=== PATIENT | female | born 1955 | race African-American/Black ===

== ENCOUNTER 2021-10-21 00:03 | Emergency (ER) | payer OTHER, SELFPAY ==
--- NOTE | ~2021-10-21 | CT_ITS ---
EXAMINATION: CTA chest PE protocol EXAM DATE: 10/21/2021 05:01 INDICATION: dyspnea, hospitalization, elevated BNP TECHNIQUE: Spiral CTA of the chest (pulmonary arteries) was performed with 100 cc Omnipaque 350 intr avenous contrast injection. Images were acquired during the pulmonary arterial phase. Coronal maxi mum intensity projection 3D-reconstructions were created by the technologist on dedicated workstation . Axial, coronal and sagittal reformatted images were reviewed. The dose-length product (DLP) for t his examination was 372.86 mGy-cm. The exposure was tailored according to patient size (auto mA exp osure control), and iterative reconstruction (ASIR) was used as additional dose reduction technique. There is no prior study for comparison. FINDINGS: Pulmonary arteries are well opacified and without intraluminal filling defects. The aorta is not yet opacified. There is cardiomegaly. Small pericardial and right pleural effusions. Trace le ft pleural effusion. Mild intralobular septal thickening, probably mild pulmonary edema. Contrast ref luxing through the right atrium to the IVC consistent with poor right heart function. Tracheobronchia l tree is patent. There is no mediastinal, hilar or axillary lymphadenopathy. There is no pneumot horax. There is mild coronary arterial calcification, arterial sclerosis. Upper abdomen is unrem arkable. There is mild thoracic spondylosis without osteoblastic or osteolytic lesions identified. IMPRESSION: 1. Findings consistent with CHF exacerbation. 2. No pulmonary emboli.. Reviewed, dictated and finalized at location A.
--- NOTE | ~2021-10-21 | XR_ITS ---
EXAMINATION: XR chest 1V portable EXAM DATE: 10/21/2021 00:28 INDICATION: Low oxygen saturation. Cough. History stroke and pneumonia. TECHNIQUE: Portable AP frontal chest x-ray was obtained. There is no prior study for comparison. FINDINGS: Moderately enlarged cardiac silhouette, combination of cardiomegaly and small pericardial e ffusion. There are small right pleural effusion. There is pulmonary vascular congestion. Probable mil d pulmonary edema. IMPRESSION: CHF exacerbation. Reviewed, dictated and finalized at location A. IMPRESSION: CHF exacerbation.
[2021-10-21 00:08] VITALS: BP 185/135; PULSE 113; PULSE 98; RESP 24; TEMP 36.3; O2SAT 100
--- NOTE | 2021-10-21 00:11 | ED.SOB ---
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 Patient states that she was diagnosed with pneumonia in July, was walking this evening, noted to have cough, shortness of breath. Personnel at the facility obtain the patient's oxygen level which was 90%. Patient was given a nebulizer treatment and EMS was called to transport the patient to our facility. Patient denies fever, chills. She denies productive cough. She denies chest pain. Denies abdominal pain, nausea or vomiting. She denies lower extremity swelling, redness. Patient denies history of COVID infection. Patient states she has been tested for [facility] and has tested negative. Chart reviewed, and pt did receive TPA at [facility]. Related Data Allergies Allergy/AdvReac Type Severity Reaction Status Date / Time No Known Allergies Allergy Unverified 09/30/11 16:53 Review of Systems Review of Systems: CONSTITUTIONAL: Denies fever, chills, or sweats. EYES: Denies visual changes, redness, or discharge. ENT: Denies rhinorrhea, congestion, sore throat, or otalgia. CARDIOVASCULAR: Denies chest pain, palpitations, or edema. RESPIRATORY: Reports cough and shortness of breath GASTROINTESTINAL: Denies abdominal pain, nausea, vomiting, or diarrhea. GENITOURINARY: Denies dysuria or hematuria. SKIN: Denies rash or itching. MUSCULOSKELETAL: Denies back pain, joint pain, or myalgia. NEUROLOGIC: Denies headache, numbness, or weakness. [facility] Social History Social History (Updated 10/21/21 @ 00:36 by Tiny Vázqeuz MD) Alcohol intake: never Substance use: never Living arrangements: [facility] Gender identity (if verbalized by the patient): Female Exam Narrative: GENERAL: Awake, alert, conversant HEAD: Normocephalic, atraumatic. Right facial droop, mild aphasia. EYES: PERRLA and EOMI. ENT: Nares clear, no rhinorrhea or epistaxis. Mucous membranes moist. NECK: Supple. CHEST: Mild tachypnea, no respiratory distress, coarse breath sounds bilaterally, no wheezing HEART: Tachycardic rate, sinus rhythm ABDOMEN:Non distended, non tender EXTREMITIES: Normal range of motion. No edema. SKIN: Warm, dry, no rash. NEURO: Right-sided residual deficits from CVA at baseline. Alert and oriented x3 Course Vital Signs Vital signs: Vital Signs Temperature 36.3 C L 10/21/21 00:08 Pulse Rate 98 10/21/21 00:08 Respiratory Rate 24 H 10/21/21 00:08 Blood Pressure 185/135 H 10/21/21 00:08 Pulse Oximetry 100 10/21/21 00:08 Temperature 36.3 C L 10/21/21 00:08 Pulse Rate 92 10/21/21 06:19 Respiratory Rate 14 10/21/21 06:19 Blood Pressure 178/122 H 10/21/21 06:19 Pulse Oximetry 97 10/21/21 06:19 MDM - SOB/Dyspnea MDM Narrative Medical decision making narrative: Patient presenting for evaluation of shortness of breath. At the time of assessment, ABCs are intact and vital signs are stable. Patient has coarse breath sounds bilaterally, no significant respiratory distress. Laboratory results show no lactic acidosis. Mild leukopenia. No significant anemia. Mild thrombocytopenia. No severe electrolyte derangement. No acute kidney injury. Chest x-ray with concern for mild pulmonary edema, did obtain a CTA to ensure no PE and it is consistent with CHF exacerbation. Patient was given a dose of Lasix in the ER. Her troponin is not elevated. She has no signs of sever
[2021-10-21] MEDS: SODIUM CHLORIDE 0.9% IV 500 ML 999 ML IV CONT (00:41)
[2021-10-21 01:00] VITALS: BP 170/112; PULSE 90; RESP 19; O2SAT 96
[2021-10-21 01:18] LABS: Lactic Acid Reflex 1.1 mmol/L (0.7-2.1)
[2021-10-21 01:20] LABS: Alanine Aminotransferase 65 U/L (4-35); Albumin Level 3.7 g/dL (3.5-5.1); Alkaline Phosphatase 76 U/L (38-126); Anion Gap 7 mmol/L (8-16); Aspartate Amino Transferase 70 U/L (14-36); Bilirubin,Total 0.8 mg/dL (0.2-1.3); Blood Urea Nitrogen 18 mg/dL (7-17); Calcium 8.9 mg/dL (8.4-10.2); Carbon Dioxide 23 mmol/L (22-30); Chloride 109 mmol/L (98-107); Estimated CRCL calculation 65 ml/min; Estimated Glomerular Filt Rate > 60; Glucose 95 mg/dL (65-110); Potassium 3.9 mmol/L (3.4-5.0); Sodium 139 mmol/L (137-145)
[2021-10-21 01:21] LABS: INR 1.4; Prothrombin Time 16.7 Seconds (11.1-14.7)
[2021-10-21 01:22] LABS: Partial Thromboplastin Time 32.8 SECONDS (22.3-36.8)
[2021-10-21 01:31] LABS: NT Pro B Type Natriuretic Pept 6470 pg/mL (5-100); Troponin I < 0.012 ng/mL (0.000-0.034)
[2021-10-21 01:46] LABS: Appearance Urine Clear (Clear); Bilirubin Urine Negative (Negative); Blood Urine Negative (Negative); Color Urine Yellow (Yellow); Glucose Urine UA Negative (Negative); Ketones Urine Negative (Negative); Leukocyte Esterase Ur Negative LEU/UL (Negative); Nitrate Urine Negative (Negative); Protein Urine 2+ mg/dL (Negative); Urobilinogen Urine 0.2 mg/dL (<2.0); pH Urine 5.5 (5.0-9.0)
[2021-10-21 01:54] LABS: Add Urine Microscopic? YES; Bacteria Urine Trace /hpf; Mucus Urine Rare /lpf; RBC Urine 0-2 /hpf (0-2); Squamous Epithelial Cell Urine Rare /hpf (Few)
--- NOTE | 2021-10-21 01:54 | ECG_ITS ---
Measurements Intervals [place] Rate: 99 P: MA: 0 QRS: -40 QRSD: 101 T: 116 QT: 377 QTc: 485 Interpretive Statements ATRIAL FIBRILLATION LEFT AXIS DEVIATION [QRS AXIS < -30] PATTERN CONSISTENT WITH PULMONARY DISEASE MODERATE T-WAVE ABNORMALITY, CONSIDER LATERAL ISCHEMIA [-0.1+ mV T-WAVE IN I/aVL/V5/V6] ABNORMAL ECG NO PREVIOUS ECG AVAILABLE FOR COMPARISON Electronically Signed On 10-21-2021 16:46:31 CDT by Felix Jaime M.D.
[2021-10-21 02:36] VITALS: BP 167/116; PULSE 86; RESP 22; O2SAT 100
[2021-10-21 02:51] LABS: Basophils Absolute Auto 0.1 K/mm3 (0.0-0.1); Basophils Percent Auto 1.3 % (0.2-1.2); Hematocrit 41.6 % (37.0-47.0); Hemoglobin 13.9 g/dL (12.0-15.0); Immature Platelet Fraction Pct 5.8 % (0.9-11.2); Lymphocytes Percent Auto 36.3 % (18.3-44.2); Mean Corpuscular HGB Conc 33.4 g/dl (32-36); Mean Corpuscular Hemoglobin 27.5 pg (26-34); Mean Corpuscular Volume 82.4 fl (80-100); Mean Platelet Volume 12.2 fl (7.4-10.4); Monocytes Absolute Auto 0.6 K/mm3 (0.1-0.6); Neutrophils Absolute Auto 1.8 K/mm3 (1.3-6.7); Neutrophils Percent Auto 46.4 % (45.5-73.1); Platelet Count Result 98 k/mm3 (150-375); Red Blood Count 5.05 M/mm3 (4.2-5.4); Red Cell Distribution Width 15.2 % (11.5-14.5); White Blood Count 3.9 K/mm3 (4.5-10.0)
[2021-10-21 04:14] VITALS: BP 173/119; PULSE 89; RESP 20; O2SAT 96
[2021-10-21] MEDS: FUROSEMIDE INJ 40 MG/4 ML VIAL 20 MG IV PUSH (06:13)
[2021-10-21 06:19] VITALS: BP 178/122; PULSE 92; RESP 14; O2SAT 97
--- NOTE | 2021-10-21 08:05 | PC.NURSE ---
called [facility] to set up transport for pt back to facility. no answer. left voicemail.
[2021-10-21 08:24] VITALS: BP 167/102; PULSE 89; RESP 17; O2SAT 98
== END 2021-10-21 08:27 ==
PROVIDERS: Emergency Provider Emergency Medicine
DX: I11.0 Hypertensive heart disease with heart failure (principal); I50.9 Heart failure, unspecified; J90 Pleural effusion, not elsewhere classified; E78.5 Hyperlipidemia, unspecified; I48.91 Unspecified atrial fibrillation; Z87.01 Personal history of pneumonia (recurrent); R94.31 Abnormal electrocardiogram [ECG] [EKG]
CPT/HCPCS: 36415; 71045; 71275; 80053; 81001; 83605; 83880; 84484; 85025; 85055; 85610; 85730; 87040; 93005; 96361; 96374; 99285; J1940; J7040; Q9967

== ENCOUNTER 2021-10-25 22:36 | Observation (INO) | payer OTHER, SELFPAY ==
--- NOTE | ~2021-10-25 | XR_ITS ---
EXAMINATION: XR chest 1V portable DATE: 10/26/2021 00:03 INDICATION: Dyspnea. TECHNIQUE: A single frontal view of the chest was obtained. COMPARISON: Chest single view 10/21/2021, chest CT 10/21/2021 FINDINGS: There is a diffuse interstitial pattern in the lungs, consistent with pulmonary edema. Ther e are small pleural effusions. No pneumothorax. There is enlargement of the cardiac silhouette. IMPRESSION: 1. Mild pulmonary edema. 2. Small pleural effusions. 3. Enlargement of the cardiac silhouette, likely a combination of cardiomegaly and pericardial effusi on as seen on the recent CT. Reviewed, dictated and finalized at location A. IMPRESSION: 1. Mild pulmonary edema. 2. Small pleural effusions. 3. Enlargement of the cardiac silhouette, likely a combination of cardiomegaly and pericardial effusion as seen on the recent CT.
[2021-10-25 22:42] VITALS: BP 220/161; PULSE 128; RESP 24; TEMP 35.9; O2SAT 97
[2021-10-25 22:45] VITALS: O2SAT 97
--- NOTE | 2021-10-25 23:13 | ECG_ITS ---
Measurements Intervals [place] Rate: 94 P: ID: 0 QRS: -36 QRSD: 110 T: 121 QT: 379 QTc: 474 Interpretive Statements ATRIAL FIBRILLATION LEFT AXIS DEVIATION [QRS AXIS < -30] PATTERN CONSISTENT WITH PULMONARY DISEASE ST DEVIATION AND MODERATE T-WAVE ABNORMALITY, CONSIDER LATERAL ISCHEMIA [-0.1+ mV T- WAVE IN I/aVL/V5/V6] COMPARED TO ECG 10/21/2021 00:09:58 NO SIGNIFICANT CHANGES Electronically Signed On 10-27-2021 13:21:24 CDT by Billie Franco M.D.
[2021-10-25 23:16] VITALS: PULSE 98; RESP 21; O2SAT 100
[2021-10-25] MEDS: ALBUTEROL SULFATE NEB 2.5 MG/0.5 ML INH 10 MG INHALATION (23:18)
[2021-10-25] MEDS: IPRATROPIUM BR 0.02% INH SOLN 0.5 MG/2.5 ML VIAL 2 MG INHALATION (23:18)
[2021-10-25 23:23] VITALS: PULSE 92; RESP 23
[2021-10-25 23:47] LABS: Basophils Absolute Auto 0.1 K/mm3 (0.0-0.1); Basophils Percent Auto 1.5 % (0.2-1.2); Eosinophils Absolute Auto 0.1 K/mm3 (0-0.3); Eosinophils Percent Auto 1.8 % (0-4.4); Hematocrit 50.1 % (37.0-47.0); Hemoglobin 16.3 g/dL (12.0-15.0); Immature Granulocyte Absolute 0.01 K/mm3 (0.00-0.031); Immature Granulocyte Percent A 0.2 % (0-0.5); Immature Platelet Fraction Pct 10.5 % (0.9-11.2); Lymphocytes Absolute Auto 3.37 K/mm3 (0.9-3.2); Lymphocytes Percent Auto 62.1 % (18.3-44.2); Mean Corpuscular HGB Conc 32.5 g/dl (32-36); Mean Corpuscular Hemoglobin 27.6 pg (26-34); Mean Corpuscular Volume 84.8 fl (80-100); Monocytes Absolute Auto 0.5 K/mm3 (0.1-0.6); Monocytes Percent Auto 8.3 % (2.6-8.5); Neutrophils Absolute Auto 1.4 K/mm3 (1.3-6.7); Neutrophils Percent Auto 26.1 % (45.5-73.1); Platelet Count Result 101 k/mm3 (150-375); Red Blood Count 5.91 M/mm3 (4.2-5.4); Red Cell Distribution Width 16.3 % (11.5-14.5); White Blood Count 5.4 K/mm3 (4.5-10.0)
[2021-10-25 23:56] LABS: INR 1.6; Partial Thromboplastin Time 31.9 SECONDS (22.3-36.8); Prothrombin Time 18.3 Seconds (11.1-14.7)
[2021-10-26] VITALS (24 sets, daily range): BP systolic 108–168; BP diastolic 72–124; PULSE 79–111; RESP 14–21; TEMP 36.1–36.4; O2SAT 93–100; BMI 25.6
--- NOTE | 2021-10-26 | ECHO_ITS ---
Patient Info Name: Gila Lui Age: 66 years : 1955 Gender: Female Ht: 65 in Wt: 151 lbs BSA: 1.78 m2 HR: 95 bpm BP: 139 / 95 mmHg Heart Rhythm: Sinus Rhythm Exam Date: 10/26/2021 3:00 PM Exam Location: [facility] Patient Status: Outpatient Admit Date: 10/26/2021 Staff Ordering Physician: Natacha Mitchell MD Budget Director: Elio Neves, DEBORA, RT Attending Provider: Natacha Mitchell MD Referring Physician: Paula HERNANDEZ; Exam Type: CA echo doppler color flow Study Info Indications I50.9 - Heart failure, unspecified Complete two-dimensional, color flow and Doppler transthoracic echocardiogram is performed. Strain analysis performed. Summary 1. Complete two-dimensional, color flow and Doppler transthoracic echocardiogram is performed. 2. The left ventricle has severe concentric hypertrophy, particularly the mid and distal ventricle, with a small cavity size. This is consistent with a hypertrophic cardiomyopathy. Less likely, noncompaction syndrome or amyloid. There is overall normal systolic function with an ejection fraction of 57% and no segmental wall motion abnormalities. However, the global longitudinal strain is-6%, severely low, suggesting a degree of systolic dysfunction. There is grade 1 diastolic dysfunction. 3. Doppler Echo does not suggest any intraventricular gradient that would be consistent with hypertrophic obstructive cardiomyopathy. 4. Left atrial chamber dimension is moderately enlarged. 5. Right atrial chamber dimension is moderately enlarged. 6. There is mild tricuspid valve regurgitation. 7. Mild pulmonary hypertension, estimated pulmonary arterial systolic pressure is 35 mmHg. 8. There is small posterior pericardial effusion, 0.4-0.7 cm thick. No tamponade. 9. Dilated inferior vena cava with <50% collapse upon inspiration consistent with elevated right atrial pressure, 20 mmHg. 10. Normal sinus rhythm. Left Ventricle Left ventricular chamber dimension is decreased. Left ventricular systolic function is normal, estimated at Empty. There is severely increased left ventricular wall thickness. Left ventricular septal wall motion is normal. The left ventricular diastolic function is grade I diastolic dysfunction. Global longitudinal strain is severely elevated at -6 %. Right Ventricle Right ventricular chamber dimension is normal. Right ventricular systolic function is normal. Left Atria Left atrial chamber dimension is moderately enlarged. Right Atria Right atrial chamber dimension is moderately enlarged. Aortic Valve The aortic valve is trileaflet. There is mild aortic valve sclerosis. There is no aortic valve stenosis. There is no aortic valve regurgitation. Pulmonic Valve The pulmonic valve is normal. There is no pulmonic valve stenosis. There is no pulmonic regurgitation. Mitral Valve The mitral valve has normal leaflets. There is no mitral valve stenosis. There is trace mitral valve regurgitation. Tricuspid Valve The tricuspid valve leaflets are normal. There is no significant tricuspid valve stenosis. There is mild tricuspid valve regurgitation. Mild pulmonary hypertension, estimated pulmonary arterial systolic pressure is 35 mmHg. Pericardium/Pleural The pericardium appears normal. There is small posterior pericardial effusion, 0.4-0.7 cm thick. No tamponade. Inferior Vena Cava Dilated inferior vena cava with <50% collapse upon inspiration consistent with elevated right atrial pressur
[2021-10-26 00:03] LABS: Alveolar/Arterial O2 Gradient 453.5 mmHg; Base Excess ABG 0.4 mEq/l (+/-2.0); Fractional Inspired Oxygen 100 %; HCO3 ABG 25.8 mEq/l (22.0-26.0); Oxygen Content ABG 21.4 %vol (16.0-22.0); Oxygen Saturation ABG 99.4 % (95.0-100.0); Oxyhemoglobin 98.1 % THb (90.0-100.0); PCO2 ABG 44.3 mmHg (35.0-45.0); PO2 ABG 215.2 mmHg (80.0-100.0); PO2 FiO2 Ratio Arterial Blood 2.15 %; Total Hemoglobin 15.2 g/dL (12.0-18.0); pH ABG 7.383 (7.350-7.450)
[2021-10-26 00:04] LABS: Device NON-INVASIVE VENT; Modified Allen's Test Pass; Non-Invasive Expiratory Pressure 5 CMH2O; Non-Invasive Inspiratory Pressure 12 CMH2O; Non-Invasive Vent Rate 12 /MIN; Site Drawn RIGHT RADIAL
[2021-10-26 00:07] LABS: NT Pro B Type Natriuretic Pept 8080 pg/mL (5-100)
[2021-10-26 00:10] LABS: Alanine Aminotransferase 67 U/L (4-35); Albumin Level 4.5 g/dL (3.5-5.1); Alkaline Phosphatase 101 U/L (38-126); Anion Gap 8 mmol/L (8-16); Aspartate Amino Transferase 92 U/L (14-36); Bilirubin,Total 1.6 mg/dL (0.2-1.3); Blood Urea Nitrogen 18 mg/dL (7-17); Calcium 8.9 mg/dL (8.4-10.2); Carbon Dioxide 25 mmol/L (22-30); Chloride 107 mmol/L (98-107); Estimated Glomerular Filt Rate > 60; Glucose 121 mg/dL (65-110); Magnesium 1.9 mg/dL (1.6-2.3); Potassium 5.1 mmol/L (3.4-5.0); Sodium 140 mmol/L (137-145)
--- NOTE | 2021-10-26 00:21 | PM.IMHP ---
H&P: HPI History of Present Illness Date/Time: 10/26/21 00:21 Chief Complaint: Shortness of breath Narrative: This is a 66-year-old female past medical history significant for congestive heart failure, hypertension, on chronic anticoagulation. [facility] was brought to the emergency room due to acute onset shortness of breath. Patient require BiPAP upon arrival to emergency room. Most of the history has been obtained upon reviewing medical records and speaking to emergency room doctor. Preliminary workup was significant for chest x-ray with right-sided moderate size pleural effusion, brain natriuretic peptide of 8000. At the time of my visit patient was on BiPAP although awake and alert unable to give much history due to the use BiPAP. Decision has been made to admit the patient for further evaluation, management and treatment. Review of Systems Review of Systems: ROS unobtainable: Yes unobtainable due to medical condition (Respiratory failure on BiPAP) [facility], [facility] Social History Social History (Updated 10/21/21 @ 00:36 by Tiny Vázquez MD) Smoking status: Former smoker Alcohol intake: former Substance use: never Gender identity (if verbalized by the patient): Female Spiritual care concerns: No Meds Home Medications and Allergies Home Medications Medication Instructions Recorded Confirmed Type apixaban [Eliquis] 5 mg PO BID 10/26/21 10/26/21 History atorvastatin 80 mg PO HS 10/26/21 10/26/21 History carvedilol 25 mg PO BID 10/26/21 10/26/21 History fluticasone propionate 1 spray INTRANASAL DAILY 10/26/21 10/26/21 History latanoprost 1 drp EACH EYE 10/26/21 10/26/21 History loratadine 10 mg PO DAILY 10/26/21 10/26/21 History losartan 50 mg PO DAILY 10/26/21 10/26/21 History mirtazapine 15 mg PO DAILY 10/26/21 10/26/21 History Allergies Allergy/AdvReac Type Severity Reaction Status Date / Time No Known Allergies Allergy Unverified 09/30/11 16:53 Vital Signs Vital Signs - 24 hr 10/25/21 22:42 10/25/21 22:45 10/25/21 23:16 Temperature 96.7 F L Pulse Rate 128 H 98 Respiratory Rate 24 H 21 H Blood Pressure 220/161 H Pulse Oximetry 97 97 100 10/25/21 23:23 Temperature Pulse Rate 92 Respiratory Rate 23 H Blood Pressure Pulse Oximetry Exam Narrative: Patient is laying in a stretcher BiPAP on Const: General: cooperative, comfortable, no acute distress, well developed, alert, awake and ill appearing acutely Nutritional Appearance: thin Orientation/consciousness: patient oriented x3 HENMT: Head: normal to inspection, normocephalic and atraumatic Ears: hearing grossly normal bilaterally General nose exam: Normal external nose present Face and sinus: normal facial exam Eyes: General: appearance normal, both eyes and all related structures Alignment and Position: alignment normal Sclera: sclerae normal Pupils: Equal, round and reactive pupils present EOM: EOMs intact bilaterally Neck: Neck: normal visual inspection, full ROM, no lymphadenopathy, supple and no JVD Thyroid: thyroid normal Lymphatic: no lymphadenopathy noted Resp: Effort & Inspection: normal respiratory effort and other (On BiPAP) Auscultation: clear to auscultation bilaterally, crackles, no rales, no rhonchi, wheezes and diminished lung sounds Cardio: Jugular venous distension: no JVD Rate: regular rate Rhythm: regular rhythm Heart sounds: S1 normal heart sound present and S2 normal heart sound present GI: Inspection: normal to inspection GI Palp: Yes Soft to palpation, No Tenderness to palpation present (GI), No Guarding due to palpation present (GI) and Yes No hepatosplenomegaly present : General: Yes deferred Skin: Rashes: no rashes Wounds: no wounds Neuro: General: patient oriented x3 and CN's II-XI intact bilaterally Cranial nerves: Yes CN's II-XII intact bilaterally and Yes Equal, round and reactive pupils present Cognition (Neuro): normal cognition Speech: marcia
--- NOTE | 2021-10-26 00:32 | ED.SOB ---
HPI - SOB/Dyspnea General Chief Complaint: Shortness of Breath/Dyspnea Stated Complaint: SOB Time Seen by Provider: 10/25/21 22:41 Source: patient and EMS Mode of arrival: EMS Limitations: clinical condition History of Present Illness HPI Narrative: Pt went to desk complaining of SOB, Pt denies fever or CP or cough. Pt in distress unable to speak more than one or two words MD elicited complaint: shortness of breath Pertinent past history: congestive heart failure Timing: constant Severity: severe Exacerbating factors: lying flat Relieving factors: nothing Known history of: congestive heart failure Associated symptoms: denies other symptoms Treatment prior to arrival: oxygen Related Data Home Medications Medication Instructions Recorded Confirmed apixaban [Eliquis] mg 10/26/21 atorvastatin 10/26/21 carvedilol 10/26/21 latanoprost drp 10/26/21 losartan 10/26/21 mirtazapine mg 10/26/21 Allergies Allergy/AdvReac Type Severity Reaction Status Date / Time No Known Allergies Allergy Unverified 09/30/11 16:53 Review of Systems Review of Systems: All systems reviewed & are unremarkable except as noted in HPI and below [facility] Social History Social History (Updated 10/21/21 @ 00:36 by Tiny Vázquez MD) Alcohol intake: never Substance use: never Gender identity (if verbalized by the patient): Female Exam Const: Other: in respiratory distress HENMT: Head: normal to inspection Eyes: Pupils: Equal, round and reactive pupils present Neck: Neck: normal visual inspection Chest: Chest palpation & inspection: normal inspection of the chest Resp: Effort & Inspection: labored, retractions and uses accessory muscles Auscultation: wheezes Cardio: Rate: tachycardic GI: GI Palp: Yes Soft to palpation Auscultation: normal bowel sounds Skin: General skin exam: normal color Neuro: General: patient oriented x3, moves all extremities, no meningeal signs and no focal motor deficits Extrem: General: normal to inspection and no clubbing, cyanosis or edema Psych: Mental Status: mental status grossly normal Affect: normal affect Thought content: Yes Normal thought content present Course Course Emergency Course: Pt much improved after bipap and neb, calm sitting back on cart Vital Signs Vital signs: Vital Signs Temperature 96.7 F L 10/25/21 22:42 Pulse Rate 128 H 10/25/21 22:42 Respiratory Rate 24 H 10/25/21 22:42 Blood Pressure 220/161 H 10/25/21 22:42 Pulse Oximetry 97 10/25/21 22:42 Temperature 96.7 F L 10/25/21 22:42 Pulse Rate 90 10/26/21 01:47 Respiratory Rate 17 10/26/21 01:47 Blood Pressure 167/119 H 10/26/21 01:47 Pulse Oximetry 99 10/26/21 01:47 MDM - SOB/Dyspnea Lab Data Result diagrams: 10/25/21 23:37 10/25/21 23:37 Labs: Lab Results 10/25/21 10/25/21 10/25/21 Range/Units 23:37 23:37 23:37 WBC 5.4 (4.5-10.0) K/mm3 RBC 5.91 H (4.2-5.4) M/mm3 Hgb 16.3 H (12.0-15.0) g/dL Hct 50.1 H (37.0-47.0) % MCV 84.8 (80-100) fl MCH 27.6 (26-34) pg MCHC 32.5 (32-36) g/dl RDW 16.3 H (11.5-14.5) % Plt Count 101 L (150-375) k/mm3 MPV TNP Immature Gran % (Auto) 0.2 (0-0.5) % Neut % (Auto) 26.1 L (45.5-73.1) % Lymph % (Auto) 62.1 H (18.3-44.2) % Kinney % (Auto) 8.3 (2.6-8.5) % Eos % (Auto) 1.8 (0-4.4) % Baso % (Auto) 1.5 H (0.2-1.2) % Lymph # (Auto) 3.37 H (0.9-3.2) K/mm3 Kinney # (Auto) 0.5 (0.1-0.6) K/mm3 Eos # (Auto) 0.1 (0-0.3) K/mm3 Baso # (Auto) 0.1 (0.0-0.1) K/mm3 Abs Immat Gran (auto) 0.01 (0.00-0.031) K/mm3 Absolute Neuts (auto) 1.4 (1.3-6.7) K/mm3 Absolute Nucleated RBC 0.0 (0.0-0.012) K/mm3 Nucleated RBC % 0.0 (0.0-0.2) % % Immature Plt Fraction 10.5 (0.9-11.2) % PT 18.3 H (11.1-14.7) Seconds INR 1.6 APTT 31.9 (22.3-36.8) SECONDS Expiratory Pressure CMH2O Inspiratory Pre
[2021-10-26] MEDS: methylPREDNISolone SOD SUCC 125 MG VIAL IV PUSH (01:42)
[2021-10-26] MEDS: FUROSEMIDE INJ 40 MG/4 ML VIAL IV PUSH ×2 (01:42→07:11)
--- NOTE | 2021-10-26 02:01 | PC.NURSE ---
Catheter was previously placed in the wrong spot by another tech. I placed it and got return of urine.
[2021-10-26 02:48] LABS: Troponin I 0.015 ng/mL (0.000-0.034)
[2021-10-26 02:59] LABS: Troponin I < 0.012 ng/mL (0.000-0.034)
--- NOTE | 2021-10-26 03:37 | ADMGEN ---
This patient, Gila Lui, was admitted to Intensive Care Unit-1 on 10/26/21 at 0330 . Patient/family oriented to hospital policies and general routines including ID bracelet, bed and alarms, visiting hours, pain management, procedure/s, bathroom and other care routines, personal items, smoking policy, room service/diet, and visiting hours. at Information on how to activate the Rapid Response Team has been discussed. Patient/Family are encouraged to report perceived risks to care and to ask questions if they do not understand what they are told or what they should do.
--- NOTE | 2021-10-26 04:25 | PC.NURSE ---
Hospitalist informed of POLST form that patient has signed that came with paperwork from rehab center. Dr. Mitchell states that she will review form and change code orders accordingly.
[2021-10-26] MEDS: NITROGLYCERIN OINTMENT 1 INCH DOSE TRANSDERM ×3 (06:21→18:14)
[2021-10-26 06:40] LABS: Troponin I < 0.012 ng/mL (0.000-0.034)
[2021-10-26 08:31] LABS: Hematocrit 45.6 % (37.0-47.0); Hemoglobin 15.6 g/dL (12.0-15.0); Lymphocytes Absolute Auto 0.59 K/mm3 (0.9-3.2); Lymphocytes Percent Auto 18.8 % (18.3-44.2); Mean Corpuscular HGB Conc 34.2 g/dl (32-36); Mean Corpuscular Hemoglobin 27.6 pg (26-34); Mean Corpuscular Volume 80.6 fl (80-100); Monocytes Absolute Auto 0.2 K/mm3 (0.1-0.6); Monocytes Percent Auto 5.8 % (2.6-8.5); Neutrophils Absolute Auto 2.3 K/mm3 (1.3-6.7); Neutrophils Percent Auto 74.4 % (45.5-73.1); Platelet Count Result 103 k/mm3 (150-375); Red Blood Count 5.66 M/mm3 (4.2-5.4); Red Cell Distribution Width 14.8 % (11.5-14.5); White Blood Count 3.1 K/mm3 (4.5-10.0)
[2021-10-26 08:34] LABS: Lactic Acid Reflex 1.4 mmol/L (0.7-2.1)
[2021-10-26 08:39] LABS: Alanine Aminotransferase 58 U/L (4-35); Alkaline Phosphatase 76 U/L (38-126); Anion Gap 7 mmol/L (8-16); Aspartate Amino Transferase 72 U/L (14-36); Bilirubin,Total 1.2 mg/dL (0.2-1.3); Blood Urea Nitrogen 18 mg/dL (7-17); Calcium 8.9 mg/dL (8.4-10.2); Carbon Dioxide 30 mmol/L (22-30); Chloride 102 mmol/L (98-107); Estimated CRCL calculation 62 ml/min; Estimated Glomerular Filt Rate > 60; Glucose 131 mg/dL (65-110); Magnesium 1.6 mg/dL (1.6-2.3); Sodium 139 mmol/L (137-145)
[2021-10-26] MEDS: carvediloL 25 MG TABLET PO ×2 (08:40→18:06)
[2021-10-26] MEDS: LOSARTAN POTASSIUM 50 MG TABLET PO (08:41)
[2021-10-26] MEDS: FLUTICASONE PROPIONATE 0.05% NA SPR 16 GM BTL (*BKC) 1 SPRAY NASAL (08:41)
[2021-10-26] MEDS: MIRTAZAPINE 15 MG TABLET PO (08:41)
[2021-10-26] MEDS: APIXABAN 5 MG TABLET PO ×2 (08:41→18:06)
[2021-10-26] MEDS: LORATADINE 10 MG TABLET PO (08:41)
--- NOTE | 2021-10-26 09:59 | PM.IMPN ---
Progress Note: A&P Assessment and Plan (1) Acute respiratory failure with hypoxia: Code(s): J96.01 - Acute respiratory failure with hypoxia Status: Acute Assessment and Plan: Patient presents with tachypnea, tachycardia and extremely elevated blood pressure. Patient in obvious respiratory distress and unable to speak more than 1-2 words on presentation. She was labored with retractions and accessory muscle use. BiPAP started in the ED. chest x-ray showed mild pulmonary edema, small pleural effusions and enlarged cardiac silhouette. Suspect related to CHF exacerbation which could have been brought on by the elevated blood pressure. Consider also undiagnosed sleep apnea or aspiration pneumonitis. Patient was admitted started on diuretics with good response. Clinically much improved although blood pressure remains elevated. Able to come off the BiPAP and on few Liters nasal cannula. Wean oxygen as tolerated. Continue supportive care. Speech therapy evaluation. (2) Acute exacerbation of congestive heart failure: Code(s): I50.9 - Heart failure, unspecified Status: Acute Assessment and Plan: Patient presents with acute respiratory failure. Chest x-ray as mentioned above. BNP is 8000. Troponin negative x3. CTA of the chest 10/21/21 was negative for PE in a prior ED visit. This did show evidence of possible right heart failure. Symptoms could be triggered from the markedly elevated blood pressure. Consider also that she has been off her Lasix the past month. Respiratory failure also could be related to undiagnosed sleep apnea which could explain the possible right heart dysfunction or aspiration. She has had excellent diuresis with Lasix. Will resume Lasix at low oral dose. Echocardiograms been ordered and will follow up on this result. CHF teaching. Daily weights. 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 Pt did receive TPA at [facility]. Continue atorvastatin. Patient is on Eliquis but not aspirin for unclear reasons. Speech therapy as above. Start PT and OT. (4) Aphasia: Code(s): R47.01 - Aphasia Status: Acute Assessment and Plan: Residual from her CVA. Continues supportive care (5) Hypertensive emergency: Code(s): I16.1 - Hypertensive emergency Status: Acute Assessment and Plan: BP was 220/161 on admission with respiratory failure and CHF exacerbation. Patient was treated for the respiratory failure. She was started on nitropaste. Her blood pressure did improve. This morning, blood pressure was more 168/124. She was started back on Cozaar and Coreg. Will monitor now that she is back on her regular regiment and add medication if she has persistent hypertension. (6) Hypertension: Code(s): I10 - Essential (primary) hypertension Status: Acute Assessment and Plan: Patient's blood pressure was reviewed on 10/26. As above (7) Thrombocytopenia: Code(s): D69.6 - Thrombocytopenia, unspecified Status: Acute Assessment and Plan: Patient has thrombocytopenia but unclear if acute or chronic. Platelet count is low but stable. Will check B12 folate levels. Obtain old records. Follow for now (8) Atrial fibrillation: Code(s): I48.91 - Unspecified atrial fibrillation Status: Acute Assessment and Plan: Patient with known atrial fibrillation. Unclear if paroxysmal or chronic but suspect chronic since last EKG on 10/21/2021 also showed AFib. Continue Coreg for rate control. Continue Eliquis for stroke prophylaxis. Continue on telemetry for now. Monitor heart rate. Subjective Date/time seen: 10/26/21 09:59 Interval history: 66yo female
--- NOTE | 2021-10-26 12:50 | PCSTNOTE ---
Please refer to the Bedside Swallow Evaluation in the EMR. Please note, silent aspiration cannot be ruled out at bedside.
[2021-10-26] MEDS: amLODIPine BESYLATE 5 MG TABLET PO (13:29)
[2021-10-26] MEDS: LATANOPROST 0.005% OP SOLN 2.5 ML BTL 1 DROP EACH EYE (21:25)
[2021-10-26] MEDS: ATORVASTATIN 40 MG TABLET 80 MG PO (21:25)
[2021-10-27] VITALS (18 sets, daily range): BP systolic 102–142; BP diastolic 66–104; PULSE 72–99; RESP 18–20; TEMP 36.1–36.6; O2SAT 95–100
[2021-10-27 04:16] LABS: SARS-CoV-2 RNA PCR Negative
[2021-10-27 07:14] LABS: Basophils Percent Auto 0.2 % (0.2-1.2); Hematocrit 42.2 % (37.0-47.0); Hemoglobin 13.9 g/dL (12.0-15.0); Immature Granulocyte Absolute 0.02 K/mm3 (0.00-0.031); Immature Granulocyte Percent A 0.2 % (0-0.5); Lymphocytes Absolute Auto 2.07 K/mm3 (0.9-3.2); Lymphocytes Percent Auto 24.7 % (18.3-44.2); Mean Corpuscular HGB Conc 32.9 g/dl (32-36); Mean Corpuscular Hemoglobin 26.9 pg (26-34); Mean Corpuscular Volume 81.6 fl (80-100); Mean Platelet Volume 12.4 fl (7.4-10.4); Monocytes Absolute Auto 1.1 K/mm3 (0.1-0.6); Monocytes Percent Auto 12.9 % (2.6-8.5); Neutrophils Absolute Auto 5.2 K/mm3 (1.3-6.7); Platelet Count Result 120 k/mm3 (150-375); Red Blood Count 5.17 M/mm3 (4.2-5.4); Red Cell Distribution Width 14.9 % (11.5-14.5); White Blood Count 8.4 K/mm3 (4.5-10.0)
[2021-10-27] MEDS: FLUTICASONE PROPIONATE 0.05% NA SPR 16 GM BTL (*BKC) 1 SPRAY NASAL (08:00)
[2021-10-27] MEDS: MIRTAZAPINE 15 MG TABLET PO (08:01)
[2021-10-27] MEDS: amLODIPine BESYLATE 5 MG TABLET PO (08:03)
[2021-10-27] MEDS: carvediloL 25 MG TABLET PO ×2 (08:03→20:34)
[2021-10-27] MEDS: LORATADINE 10 MG TABLET PO (08:04)
[2021-10-27] MEDS: FUROSEMIDE 20 MG TABLET PO (08:04)
[2021-10-27 09:17] LABS: Alanine Aminotransferase 49 U/L (4-35); Alkaline Phosphatase 66 U/L (38-126); Anion Gap 7 mmol/L (8-16); Aspartate Amino Transferase 63 U/L (14-36); Bilirubin,Total 1.4 mg/dL (0.2-1.3); Blood Urea Nitrogen 25 mg/dL (7-17); Calcium 8.7 mg/dL (8.4-10.2); Carbon Dioxide 30 mmol/L (22-30); Chloride 100 mmol/L (98-107); Estimated CRCL calculation 62 ml/min; Estimated Glomerular Filt Rate > 60; Glucose 100 mg/dL (65-110); Magnesium 1.9 mg/dL (1.6-2.3); Phosphorus 4.1 mg/dL (2.5-4.5); Potassium 4.9 mmol/L (3.4-5.0); Sodium 137 mmol/L (137-145)
[2021-10-27] MEDS: APIXABAN 5 MG TABLET PO ×2 (09:23→20:34)
[2021-10-27 10:15] LABS: Folic Acid 16.3 ng/mL (2.76->20)
--- NOTE | 2021-10-27 13:01 | PM.IMPN ---
Progress Note: A&P Assessment and Plan (1) Acute respiratory failure with hypoxia: Code(s): J96.01 - Acute respiratory failure with hypoxia Status: Acute Assessment and Plan: Patient presents with tachypnea, tachycardia and extremely elevated blood pressure. Patient was in obvious respiratory distress and unable to speak more than 1-2 words on presentation. She was labored with retractions and accessory muscle use. BiPAP started in the ED. CXR showed mild pulmonary edema, small pleural effusions and enlarged cardiac silhouette. Bedside swallow evaluation okay. Suspect related to CHF exacerbation which could have been brought on by the elevated blood pressure. Patient was admitted started on diuretics with good response. Able to come off the BiPAP and on supplemental O2 that was able to be weaned off. Continue supportive care. (2) Acute exacerbation of congestive heart failure: Code(s): I50.9 - Heart failure, unspecified Status: Acute Assessment and Plan: Patient presents with acute respiratory failure. CXR as mentioned above. BNP is 8000. Troponin negative x3. CTA of the chest 10/21/21 was negative for PE in a prior ED visit. This did show evidence of possible right heart failure. Symptoms could be triggered from the markedly elevated blood pressure. Consider also that she has been off her Lasix the past month. She has had excellent diuresis with Lasix. Continue oral Lasix. Echo showing EF 57% and Grade I diastolic dysfunction. ApneaLink okay. Continue to control BP. Remove Carr. 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 [facility] Continue atorvastatin. Patient is on Eliquis but not aspirin for unclear reasons. She doesn't believe that she ever was on ASA since her CVA. No hx of ICH or other bleeding problems. No old records received yet. Not on ASA at the facility Speech therapy as above. Continue PT and OT. Will hold ASA for now until it can be determined why she is not on this. (4) Aphasia: Code(s): R47.01 - Aphasia Status: Acute Assessment and Plan: Residual from her CVA. Continues supportive care (5) Hypertensive emergency: Code(s): I16.1 - Hypertensive emergency Status: Acute Assessment and Plan: BP was 220/161 on admission with respiratory failure and CHF exacerbation. Patient was treated for the respiratory failure. Nitropaste added and her blood pressure did improve. Norvasc added and BP better. Will remove NTP. Continue to adjust medications (6) Atrial fibrillation: Code(s): I48.91 - Unspecified atrial fibrillation Status: Acute Assessment and Plan: Patient with known atrial fibrillation. Unclear if paroxysmal or chronic but suspect chronic since last EKG on 10/21/2021 also showed AFib. Tele reviewed showing AFib but also with multiple episodes of NSVT. Potassium 4.9 and Mag 1.9. Continue Coreg for rate control. Continue Eliquis for stroke prophylaxis. Continue on telemetry for now. Monitor heart rate. Replace Mag. (7) Hypertension: Code(s): I10 - Essential (primary) hypertension Status: Acute Assessment and Plan: Patient's blood pressure was reviewed on 10/27 As above (8) Thrombocytopenia: Code(s): D69.6 - Thrombocytopenia, unspecified Status: Acute Assessment and Plan: Patient has thrombocytopenia but unclear if acute or chronic. B12/Folate normal. Platelet count is low but better today. Follow Additional Plan Elevated LFTs - AST peaked at 92 and ALT at 67. [place] related to above. Levels trending down. Follow Subjective Date/time seen: 10/27/21 13:01 Interval history: 66yo female with hx of left internal
[2021-10-27] MEDS: MAGNESIUM SULF 2 GM/WATER 50ML 2 GM/50 ML BAG IVPB (14:00)
[2021-10-27] MEDS: ATORVASTATIN 40 MG TABLET 80 MG PO (20:33)
[2021-10-27] MEDS: LOSARTAN POTASSIUM 50 MG TABLET PO (20:34)
[2021-10-27] MEDS: LATANOPROST 0.005% OP SOLN 2.5 ML BTL 1 DROP EACH EYE (20:34)
[2021-10-28] VITALS (10 sets, daily range): BP systolic 112–139; BP diastolic 65–94; PULSE 50–88; RESP 16–22; TEMP 36.2–36.6; O2SAT 96–98
[2021-10-28 05:21] LABS: Anion Gap 5 mmol/L (8-16); Blood Urea Nitrogen 26 mg/dL (7-17); Calcium 8.3 mg/dL (8.4-10.2); Carbon Dioxide 29 mmol/L (22-30); Chloride 106 mmol/L (98-107); Estimated CRCL calculation 62 ml/min; Estimated Glomerular Filt Rate > 60; Glucose 84 mg/dL (65-110); Magnesium 2.2 mg/dL (1.6-2.3); Potassium 3.5 mmol/L (3.4-5.0); Sodium 140 mmol/L (137-145)
[2021-10-28] MEDS: FLUTICASONE PROPIONATE 0.05% NA SPR 16 GM BTL (*BKC) 1 SPRAY NASAL (08:39)
[2021-10-28] MEDS: FUROSEMIDE 20 MG TABLET PO (08:39)
[2021-10-28] MEDS: APIXABAN 5 MG TABLET PO (08:40)
[2021-10-28] MEDS: carvediloL 25 MG TABLET PO (08:40)
[2021-10-28] MEDS: MIRTAZAPINE 15 MG TABLET PO (08:40)
[2021-10-28] MEDS: amLODIPine BESYLATE 5 MG TABLET PO (08:41)
[2021-10-28] MEDS: LORATADINE 10 MG TABLET PO (08:41)
--- NOTE | 2021-10-28 12:55 | PM.DS ---
DS: Admitting Diagnosis Discharge Date 10/28/21 Admitting Diagnosis Shortness of breath DS: Discharge Diagnosis Discharge Diagnosis (1) Acute respiratory failure with hypoxia: Code(s): J96.01 - Acute respiratory failure with hypoxia Status: Acute Assessment and Plan: Patient presents with tachypnea, tachycardia and extremely elevated blood pressure. Patient was in obvious respiratory distress and unable to speak more than 1-2 words on presentation. She was labored with retractions and accessory muscle use. BiPAP started in the ED. CXR showed mild pulmonary edema, small pleural effusions and enlarged cardiac silhouette. Bedside swallow evaluation okay. Suspect related to CHF exacerbation which could have been brought on by the elevated blood pressure and/or being off her diuretics. Patient was admitted started on diuretics with good response. Able to come off the BiPAP and on to supplemental O2 that was able to be weaned off. Resolved. (2) Acute exacerbation of congestive heart failure: Code(s): I50.9 - Heart failure, unspecified Status: Acute Assessment and Plan: Patient presented with acute respiratory failure. CXR as mentioned above. BNP was 8000. Troponin negative x3. CTA of the chest 10/21/21 was negative for PE in a prior ED visit. This did show evidence of possible right heart failure. Symptoms could be triggered from the markedly elevated blood pressure. Consider also that she has been off her Lasix the past month. Echo showing EF 57%, Grade I diastolic dysfunction and severe concentric LVH consistent with HCM; doppler does not suggest evidence of HOCM. ApneaLink okay. Patient had acute on chronic diastolic CHF. She has had excellent diuresis with Lasix. She was changed to oral Lasix. BP became better controlled. Will arrange for outpatient Cardiology follow up (discussed with Cardiology). (3) Hypertensive emergency: Code(s): I16.1 - Hypertensive emergency Status: Acute Assessment and Plan: BP was 220/161 on admission with respiratory failure and CHF exacerbation. Patient was treated for the respiratory failure. Nitropaste added and her blood pressure did improve. Norvasc added and NTP stopped. BP remained swell controlled. 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 [facility]. We continued atorvastatin. Patient is on Eliquis but not aspirin for unclear reasons. She doesn't believe that she ever was on ASA since her CVA. No hx of ICH or other bleeding problems. Not on ASA at the facility Old records requested but none received. She worked with PT and OT. Speech therapy as above. Discuss with your doctor about starting ASA. (5) Aphasia: Code(s): R47.01 - Aphasia Status: Acute Assessment and Plan: Residual from her CVA. Continues supportive care (6) Atrial fibrillation: Code(s): I48.91 - Unspecified atrial fibrillation Status: Acute Assessment and Plan: Patient with known atrial fibrillation. Unclear if paroxysmal or chronic but suspect chronic since last EKG on 10/21/2021 also showed AFib. Tele reviewed showing chronic AFib with rate controlled. We continued Coreg for rate contro and Eliquis for stroke prophylaxis. (7) Hypertension: Code(s): I10 - Essential (primary) hypertension Status: Acute Assessment and Plan: Patient's blood pressure was monitored closely. (8) Thrombocytopenia: Code(s): D69.6 - Thrombocytopenia, unspecified Status: Acute Assessment and Plan: Patient has thrombocytopenia but unclear if acute or chronic. B12/Folate normal. Platelet count was low but trended upward. (9) Elevated LFTs: Cod
[2021-10-28] MEDS: POTASSIUM CHLORIDE 20 MEQ TABLET PO (14:42)
--- NOTE | 2021-10-28 14:50 | PCCCNOTE ---
On 10/28/21, the student, [Hope Genao], provided care and completed [facility] documentation on this patient. I have reviewed the student's documentation and agree with the findings.
== END 2021-10-28 14:45 ==
LOC: ANHED 10-26 00:36 → ANHICU 10-26 04:46 → ANHIMU 10-27 09:45 → ANHICU 11-01 11:05 → ANHIMU 11-01 11:05
PROVIDERS: Admitting Provider Internal Medicine; Emergency Provider Emergency Medicine; Visit Provider Internal Medicine
DX: J96.01 Acute respiratory failure with hypoxia (principal); I16.1 Hypertensive emergency; Z79.01 Long term (current) use of anticoagulants; I11.0 Hypertensive heart disease with heart failure; I50.9 Heart failure, unspecified; I63.9 Cerebral infarction, unspecified; R47.01 Aphasia; D69.6 Thrombocytopenia, unspecified; I48.91 Unspecified atrial fibrillation; Z20.822 Contact with and (suspected) exposure to COVID-19
CPT/HCPCS: 36415; 36600; 51702; 71045; 80048; 80053; 82607; 82746; 82805; 83605; 83735; 83880; 84100; 84443; 84484; 85025; 85055; 85610; 85730; 87040; 92610; 93005; 93306; 94002; 94003; 94640; 94762; 96374; 96375; 96376; 97110; 97116; 97161; 97165; 97530; 97535; 99285; A9270; C9803; G0378; G0379; J1940; J2930; J3475; U0003; U0005

== ENCOUNTER 2025-05-15 08:09 | Outpatient (CLI) | payer MEDICARE, MEDICAID, SELFPAY ==
--- NOTE | ~2025-05-15 | DEXA_ITS ---
Bone Density Report Name: WING DODSON Age: 69 Sex: Female Ethnicity: White Date of : 1955 Indication: postmenopausal; screening for osteoporosis; hysterectomy; Referring Provider: UNKNOWN, UNKNOWN Study: Bone densitometry was performed. Exam Date: May 15, 2025 Accession number: [id number] Bone Density: Region BMD T-score Z-score Classification AP Spine(L1, L2) 0.905 -0.7 1.2 Normal Femoral Neck (Left) 0.715 -1.2 0.5 Osteopenia Total Hip (Left) 0.874 -0.6 0.8 Normal Femoral Neck (Right) 0.700 -1.3 0.3 Osteopenia Total Hip (Right) 0.830 -0.9 0.5 Normal Total Hip Mean 0.852 -0.8 0.7 Normal World Health Organization criteria for BMD impression classify patients as: Normal (T-score at or above -1.0), Osteopenia (T-score between -1.0 and -2.5), or Osteoporosis (T-score at or below -2.5). 10-year Fracture Risk(1): Major Osteoporotic Fracture 9.1% Hip Fracture 1.0% Reported Risk Factors: [place] (), Neck BMD=0.700, BMI=27.0 (1) FRAX(R) Version 3.08. Fracture probability calculated for an untreated patient. Fracture probability may be lower if the patient has received treatment. Clinical Information Provided by Patient: Has the following medical conditions: Hysterectomy Patient maximum height was 64 Drinks caffeinated beverages Onset of menses at age 16 Number of children 1 Missed period for more than 6 months in a row Impression: The patient has low bone mass, based on the Right Femoral Neck T-score. The patient has an estimated ten-year risk of hip fracture of 1% and an estimated ten-year risk of major fracture of 9.1%, based on the WHO FRAX algorithm. Discussion: BONE DENSITY IS LOW AT ONE OR MORE SKELETAL SITES. This patient's lowest T-score is low at one or more skeletal sites. It meets the World Health Organization's (WHO) criteria for ?low bone mass? (T-score between -1.0 and -2.5). The patient's 10-year risk of fracture as calculated by FRAX is less than the threshold where pharmacological therapy is recommended by the National Osteoporosis Foundation (NOF). However, all treatment decisions require clinical judgment and consideration of individual patient factors, including patient preferences, comorbidities, previous drug use, risk factors not captured in the FRAX model (e.g., frailty, falls, vitamin D deficiency, increased bone turnover, interval significant decline in bone density) and possible under or overestimation of fracture risk by FRAX. The patient should follow a healthful lifestyle (good nutrition with adequate calcium and vitamin D, and appropriate weight-bearing exercise). Follow-Up: Consider repeating this study in 2 to 3 years to reassess this patient's status, or sooner if there is some new clinical indication. Reported by: PAGE on 05/15/2025 8:58:00 AM. Reviewed, dictated and finalized at location A.
--- NOTE | ~2025-05-15 | MM_ITS ---
EXAMINATION: MM screening tiffany BI w ana HISTORY: Screening TECHNIQUE: Craniocaudal and mediolateral oblique 3-D tomosynthesis images were obtained and synthetic 2-D images were generated. CAD analysis was submitted and interpreted. COMPARISON: No prior mammogram is available for comparison at this institution. BREAST PARENCHYMAL COMPOSITION: Not dense: There are scattered areas of fibroglandular density. FINDINGS: There is no evidence of suspicious mass, calcification, or architectural distortion to suggest malignancy in either breast. There has been no suspicious interval change. IMPRESSION: 1. No mammographic evidence of malignancy. 2. Recommend routine screening mammography in one year. BI-RADS Category 1: Negative Reviewed, dictated and finalized at location B. ANICAL DESIGN TECHNICIAN
--- OUTSIDE RECORDS SUMMARY | 2025-05-15 08:14 | XMS_ITS | Clinical Summary ---
Author Organization [facility] Address [address] [place] [id number] Care Team Providers Care Cook Mess Name Role Phone No, Physician Primary Care Provider [phone] Allergies No known active allergies Medications dilTIAZem XR (CARDIZEM CD,DILACOR XR) 180 mg 24 hr capsuleIndicati ons:hypertensio n Take 180 mg by mouth every morning Active apixaban (ELIQUIS) 5 mg tabletIndicatio ns:atrial fibrillation,keyes d pneumonia/ knocked her heart out of rhythm Take 5 mg by mouth 2 (two) times a day Active magnesium oxide (MAG-OX) 400 mg (241.3 mg elemental magnesium) tabletIndicatio ns:hypomagnesem ia Take 400 mg by mouth nightly Active losartan (COZAAR) 25 mg tabletIndicatio ns:hypertension Take 25 mg by mouth every morning Active latanoprost (XALATAN) 0.005 % ophthalmic solutionIndicat ions:glaucoma Administer 1 drop into both eyes nightly Active Active Problems Problem Noted Date Diagnosed Date 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 Discussed R/B/A of pars plana vitrectomy (PPV)/PPL/Afx. Risks, benefits and alternatives were discussed with patient including but not limited to infection, bleeding, loss of vision, blindness ,loss of the eye, retinal tear, retinal detachment, damage to eye, deformity, double vision, increased pressure in the eye, cataract progression, inflammation in the eye that can spread to the other eye, postoperative positioning, altitude/travel precautions should gas bubble injection be required, guarded prognosis for vision, need for additional procedures in the future.The patient understands these risks , all questions were answered and the patient elected to proceed. Glaucoma syndrome 08/11/2021 Surgical History Surgery Date Site/Laterality Comments HYSTERECTOMY 07/03/1977 - 07/02/1978 Medical History Medical History Date Comments Cataract Pneumonia 07/2021 Atrial fibrillation (HCC) 07/2021 Family History Medical History Relation Name Comments Anesthesia problems Neg Hx [place] Hyperthermia Neg Hx Social History Tobacco Use Types Packs/Day Years Used Date Smoking Tobacco: Some Days Cigarettes Smokeless Tobacco: Never AUDIT-C Answer Date Recorded Q1: How often do you have a drink containing alc ohol? 2-3 times a week 08/12/2021 Q2: How many drinks containi ng alcohol do you have on a typical day when you are drinking? 1 or 2 08/12/2021 Q3: How often do you have si x or more drinks on one occasion? Less than monthly 08/12/2021 Personal Safety Answer Date Recorded Getting School Help Needed Not on file 06/26 Comments Unknown Sex and Gender Information Value Date Recorded Sex Assigned at Not on file Legal Sex Female 2:53 PM [facility] Gender Identity Not on file Sexual Orientation Not on file Last Filed Vital Signs Vital Sign Reading Time Taken Comments Blood Pressure - - Pulse - - Temperature - - Respiratory Rate - - Oxygen Saturation - - Inhaled Oxygen Concentration - - Weight 63.5 kg (140 lb) 08/12/2021 1:05 PM [facility] Height 163.8 cm (5' 4.5) 08/12/2021 1:05 PM [facility] Body Mass Index 23.66 08/12/2021 1:05 PM [facility] Plan of Treatment Not on file Insurance [facility] Care Teams Cook Mess Relationship Specialty Start Date End Date No, Physician PCP - General 08/11/21
--- OUTSIDE RECORDS SUMMARY | 2025-05-15 08:14 | XMS_ITS | Data Portability ---
Author Organization [place] - S [employer] [facility], Main Office Address [address] [place] [address] Care Team Providers Care Bureau Chief Name Role Phone RADHA CLEVELAND Primary Care Provider Assessment Encounter Date Assessment Date Assessment LastModified by Organization Details LastModified Time 02/11/2025 02/11/2025 This note is dictated and transcribed by [employer]. Agricultural Extension Educator variances may occur. Despite proofreading, typographical errors may occur. Occasional wrong-word or 'wqycp-h-hrdj' substitutions may have occurred due to the inherent limitations of voice recording. Read the chart carefully and recognize, using context, where substitutions have occurred. Not available 02/11/2025 14:25:57 02/20/2025 02/20/2025 This note is dictated and transcribed by [employer]. [employer] Extension Educator variances may occur. Despite proofreading, typographical errors may occur. Occasional wrong-word or 'pxzei-q-fpmi' substitutions may have occurred due to the inherent limitations of voice recording. Read the chart carefully and recognize, using context, where substitutions have occurred. Not available 02/20/2025 11:21:05 05/13/2025 05/13/2025 This note is dictated and transcribed by [employer]. Agricultural Extension Educator variances may occur. Despite proofreading, typographical errors may occur. Occasional wrong-word or 'edyrt-o-supz' substitutions may have occurred due to the inherent limitations of voice recording. Read the chart carefully and recognize, using context, where substitutions have occurred. Not available 05/13/2025 11:20:55 Plan of Treatment Reminders Order Date Submit Date Provider Last Modified By Organization Details Last Modified Time Details Appointments Establish ed Patient 10 2025 11:10A M Elio Aleksandra, DPM Not available Not available Not available Lab hepatitis C genotype, serum or plasma [address] (Lab), [address] [place], [address], 09/16/2024 08:32:27 HIV-1, genotype (genosure ), plasma [address] [place] [address] (Lab), [address] [place], [address], 09/16/2024 08:32:35 hepatic function panel, serum [address] [place] [address] (Lab), [address] [place], [address], 09/16/2024 08:32:49 mitochond rial M2 igg Ab, serum [address] [place] [address] (Lab), [address] [place], [address], 09/16/2024 08:32:59 smooth muscle Ab, serum [address] [place] [address] (Lab), [address] [place], [address], 09/16/2024 08:33:23 Referral None recorded. Procedures colonosco py screening (PROC) [address] [place] [address] Ctr (Pre-Screen), [address] [place], [address], 09/02/2024 10:24:36 Surgeries None recorded. Imaging None recorded. Medication Orders doxycycli ne monohydra te 100 mg capsule 2024 [facility], [address] [place], [place], [id number], 02/25/2025 05:02:15 Golytely 236 gram-22.7 4 gram-6.74 gram-5.86 gram oral solution 2024 025 [facility], [address] [place], [place], [id number], 09/04/2024 09:57:29 Lovenox 120 mg/0.8 mL subcutane ous syringe 2024 025 [facility], [address] [place], [place], [id number], 09/04/2024 09:57:29 Patient TargetsNo targets recorded. Patient Instructions Encounter Date Encounter Id Patient Instructions Last Modified By Organization Details Last Modified Time 08/28/2024 [id number] BRITNEY [email or web address] Not available 11:34:24 PT WITH A POSITI VE HCV-RNA , HEPC AB . INDICATING CHRONIC DZ. RECOMMEND TO CHECK LFTs AND OTHER LIVER MARKERS . F/U IN 2 WEEKS . PT NEEDS A SCREENING COLON . R/O POLYP . RECOMMEND A COLONOSOPY . . Risks benefits and complications were explained to the pt. ( BLEEDING PERFORATION , INFECTION , ). PT VERBALIZES UNDERSTANDING AND IS WILLING TO PROCEDE . [email or web address] Not available 08/28/2024 11:35:05 Reason for Referral None Reported. Results Created Date Observation Date Name Description Value Unit Range Abnormal Flag Note LastModifiedBy Organization Detail LastModifiedTime Result Notes None recorded. 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 Procedures Surgical History Date Name Laterality Status Provider Name and Address Organization Details Recorded Time 5 Nail Debridement completed Elio Lake DPM [address], [place], [address], [email or web address] 02/11/2025 14:25:00 5 Nail Debridement completed ARELY Bowman, [address], [place], [address], [employer] 09/16/2024 08:43:14 5 Callus Debridement, One completed ARELY Bowman, [address], [place], [address], [employer] 09/16/2024 08:43:26 4 Nail Debridement completed ARELY [address], [address], [place], [address], [employer] 04/29/2024 08:45:30 4 Nail Debridement completed ARELY Bowman, [address], [place], [address], [employer] 02/26/2024 08:49:00 4 Wart Topical Procedure completed Christ Flores DPM [address] [facility], [facility] [address], [place], [address], [facility] [employer] [facility] 02/26/2024 08:49:21 Imaging Results None recorded. Procedure Notes None recorded. Medical Equipment None Reported. Allergies No known drug allergies Medications Name Sig Start Date Stop Date Status Note LastModified by Organization Details LastModified Time losartan 50 mg tablet 04/22 completed Not Available Not Available Not Available amoxicillin 500 mg capsule TAKE TWO CAPSULES BY MOUTH AT ONCE THEN TAKE ONE CAPSULE THREE TIMES A DAY, MORNING, MIDDAY AND BEDTIME UNTIL GONE active Not Available Not Available No t Available latanoprost 0.005 % eye drops install one drop into BOTH eyes EVERY NIGHT AT BEDTIME active Not Available Not Available No t Available atorvastati n 80 mg tablet TAKE ONE TABLET BY MOUTH EVERY NIGHT AT BEDTIME TO LOWER CHOLESTER OL active Not Available Not Available No t Available carvedilol 25 mg tablet TAKE ONE TABLET BY MOUTH TWICE DAILY EVERY MORNING & EVENING FOR BLOOD PRESSURE & HEART active Not Available Not Available No t Available prednisone 10 mg tablet 04/22 completed Not Available Not Available Not Available diltiazem CD 180 mg capsule,ext ended release 24 hr 02/01 completed Not Available Not Available Not Available fluconazole 150 mg tablet TAKE ONE TABLET BY MOUTH EVERY WEEK DIRECTED active Not Available Not Available No t Available fluconazole 200 mg tablet TAKE ONE TABLET BY MOUTH EVERY DAY active Not Available Not Available No t Available acetaminoph en 300 mg-codeine 30 mg tablet TAKE ONE TABLET BY MOUTH EVERY 4 TO 6 HOURS NEEDED FOR PAIN active Not Available Not Available No t Available amlodipine 5 mg tablet TAKE ONE TABLET BY MOUTH EVERY MORNING FOR BLOOD PRESSURE active Not Available Not Available No t Available peg-electro lyte solution 420 gram oral solution USE DIRECTED by office active Not Available Not Available No t Available prednisone 10 mg tablets in a dose pack Take 1 tab by mouth, 3 times a day for 3 daysTake 1 tab by mouth 2 times a day for 2 daysTake 1 tab by mouth once a day for 1 day 04/22 completed Not Available Not Available Not Available magnesium oxide 400 mg (241.3 mg magnesium) tablet 02/01 completed Not Available Not Available Not Available Kenalog 10 mg/mL suspension for injection In office injection administe red by the provider 04/22 completed [facility]: 0003- 0494- 20 Not Available Not Available Not Available doxycycline monohydrate 100 mg capsule Take 1 capsule twice a day by oral route as directed for 7 days. 02/25 completed Not Available Not Available Not Available cephalexin 500 mg capsule TAKE TWO CAPSULES AT ONCE TODAY, THEN TAKE ONE CAPSULE BY MOUTH EVERY DAY UNTIL ALL GONE active Not Available Not Available No t Available losartan 25 mg tablet TAKE ONE TABLET BY MOUTH EVERY MORNING FOR BLOOD PRESSURE active Not Available Not Available No t Available gabapentin 300 mg capsule TAKE ONE CAPSULE THREE TIMES DAILY NEEDED FOR PAIN MANAGEMEN T active Not Available Not Available No t Available furosemide 20 mg tablet TAKE ONE TABLET BY MOUTH EVERY MORNING FOR FLUID RETENTION active Not Available Not Available No t Available mirtazapine 15 mg tablet TAKE ONE TABLET BY MOUTH EVERY NIGHT AT BEDTIME active Not Available Not Available No t Available ergocalcife rol (vitamin D2) 1,250 mcg (50,000 unit) capsule TAKE ONE CAPSULE ONCE EVERY WEEK FOR VITAMIN DEFICIANC Y active Not Available Not Available No t Available fluticasone propionate 50 mcg/actuati on nasal spray,suspe nsion USE ONE SPRAY IN EACH NOSTRIL DAILY active Not Available Not Available No t Available loratadine 10 mg tablet TAKE ONE TABLET DAILY NEEDED active Not Available Not Available No t Available naproxen 500 mg tablet TAKE ONE TABLET BY MOUTH TWICE DAILY EVERY MORNING & EVENING FOR PAIN active Not Available Not Available No t Available amoxicillin 500 mg-potassiu m clavulanate 125 mg tablet TAKE ONE TABLET BY MOUTH TWICE DAILY EVERY MORNING & EVENING WITH FOOD FOR INFECTION 08/28 completed Not Available Not Available Not Available oxycodone 5 mg tablet 04/22 completed Not Available Not Available Not Available enoxaparin 120 mg/0.8 mL subcutaneou s syringe INJECT 0.8mg EVERY MORNING FOR 5 DAYS. (need this BEFORE your colonosco py) active Not Available Not Available No t Available Golytely 236 gram-22.74 gram-6.74 gram-5.86 gram oral solution DIRECTED 2024 active Not Available Not Available Not Avai lable loratadine 10 mg capsule Take by oral route. 04/22 completed Not Available Not Available Not Available ropivacaine (PF) 5 mg/mL (0.5 %) injection solution Take 20 mg by injection route. 04/22 completed Not Available Not Available Not Available Eliquis 5 mg tablet TAKE ONE TABLET BY MOUTH TWICE DAILY EVERY MORNING & EVENING TO PREVENT STROKE active Not Available Not Available No t Available diclofenac sodium 1.5 % topical drops-menth ol 10 % roll-on combo pack 04/22 completed Not Available Not Available Not Available Tylenol 325 mg capsule Take as needed by oral route. 2021 active Not Available Not Available Not Avai lable Vitals Date Recorded Body height Body mass index (BMI) Body weight Heart rate Oxygen saturation Oxygen saturation in Arterial blood by Pulse oximetry Systolic And Diastolic Provider Name and Address Organization Details Last Updated DateTime 5 162.56 cm 28.8 kg/m2 64484.5 2 g 58 /min 97 % 97 % 98/52 mm[Hg] Georgia Weiner Bry [facility] [employer] [facility] 5 11:11:55 Date Recorded Body height Body mass index (BMI) Body weight Oxygen saturation Oxygen saturation in Arterial blood by Pulse oximetry Body temperature Heart rate Provider Name and Address Organization Details Last Updated DateTime 5 162.56 cm 29 kg/m2 05417.1 1 g 97 % 97 % 98.2 [degF] 66 /min Zachary Raymond Bry [facility] [employer] [facility] 5 11:44:11 Date Recorded Body height Body mass index (BMI) Body weight Heart rate Respiratory rate Oxygen saturation Oxygen saturation in Arterial blood by Pulse oximetry Systolic And Diastolic Provider Name and Address Organization Details Last Updated DateTime 5 162.56 cm 29 kg/m2 64113.1 1 g 54 /min 14 /min 98 % 98 % 117/67 mm[Hg] Rox English [facility] [employer] [facility] 5 09:38:41 Date Recorded Heart rate Oxygen saturation Oxygen saturation in Arterial blood by Pulse oximetry Body temperature Systolic And Diastolic Provider Name and Address Organization Details Last Updated DateTime 5 84 /min 99 % 99 % 97.5 [degF] 107/75 mm[Hg] Zachary Raymond [facility] [employer] [facility] 5 11:41:41 Date Recorded Body height Body mass index (BMI) Body weight Provider Name and Address Organization Details Last Updated DateTime 02/20/2025 162.56 cm 29 kg/m2 08167.11 g Rox English JOEL Brenner A [facility] [employer] [facility] 02/20/2025 11:37:09 Date Recorded Body height Body mass index (BMI) Body weight Oxygen saturation Oxygen saturation in Arterial blood by Pulse oximetry Body temperature Heart rate Systolic And Diastolic Provider Name and Address Organization Details Last Updated DateTime 162.56 cm 29 kg/m2 91523.1 1 g 96 % 96 % 98.2 [degF] 51 /min 127/85 mm[Hg] Zachary Raymond Bry [place] - [facility] [employer] [facility] 5 10:54:40 Social History Question Answer Notes LastModified by [employer] Details LastModified Time Tobacco Smoking Status Never Smoker Not Available [facility] 09/01/2022 01:23:42 What Was The Date Of Your Most Recent Tobacco Screening? 05/13/2025 [email or web address] Information not available 05/13/2025 Sex: Unknown Functional Status Question Answer Note LastModified by [employer] Details LastModified Time What is your level of alcohol consumption? None [id number] Information not available 09/01/2022 Mental Status None recorded. Family History Relationship Description Onset Age of this Age Resolved Age Notes LastModified by Organization Details LastModified Time Father No current problems or disability [email or web address] Not available 07/15 08:39:28 Mother No current problems or disability [email or web address] Not available 07/15 08:39:28 Medical History Condition Response ARTHRITIS Y USE OF BLOOD THINNERS Y ATRIAL FIBRILLATION Y HEART DISEASE/HEART PROBLEMS Y DEPRESSION (INCLUDING POST ) Y HYPERTENSION Y STROKE/TIA Y HIGH CHOLESTEROL / HYPERLIPIDEMIA Y Gynecological HistoryNo gynecological history recorded. Obstetrics History GPAL:G 0 P 0 0 0 0 Past Encounters Encounter ID Performer Location Encounter Start Date Encounter Closed Date Diagnosis/Indication Diagnosis SNOMED-CT Code Diagnosis ICD10 Code Diagnosis IMO Codes Diagnosis Note [id number] Bowen Nagy MD [facility] [place] [address] [place] [address] 02/01/2022 00:00:00 02/01/2022 15:48:25 [id number] Bowen Nagy MD [facility] [place] [address] [facility] [place] [address] 03/08/2022 00:00:00 03/08/2022 15:21:14 [id number] Christ Flores DPM [facility] [place] [address] [place] [address] 02/23/2024 11:41:40 02/26/2024 14:19:05 Onychomycosis of toenails 300455339 B35.1 [id number] Christ Flores DPM [facility] [place] [address] [address] 04/26/2024 10:34:15 04/30/2024 09:34:07 Onychomycosis of toenails 840908987 B35.1 [id number] Melany Forman MD [facility] [address] [address] 08/28/2024 11:07:04 08/28/2024 11:33:59 Chronic hepatitis C 376864015 B18.2 Atrial fibrillation 4943 6004 I48.91 S/P CVA Screening for malignant neoplasm of colon 531871720 Z12.11 [id number] Christ Flores DPM [facility] [place] [address] [address] 09/12/2024 11:38:38 09/23/2024 10:57:13 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 Nails were debrided and greater than 50% length and thickness where needed. [id number] Elio Lake DPM [facility] [place] [address] [address] 02/20/2025 11:33:17 02/21/2025 14:30:57 Cellulitis of left lower limb 7891430467 9955286 L03.809 [id number] Resolvedfi tammy doxycyclin efollow-up as needed Chronic hepatitis C 1283 99291 B18.2 continue with PCP recommenda tions [id number] Elio Lake DPM [facility] [place] [address] [address] 05/13/2025 10:40:24 05/14/2025 16:32:56 Chronic hepatitis C 088172046 B18.2 continue with PCP recommenda tions Dystrophia unguium 93660 009 L60.3 1009 Nails debrided without incident Need for p [facility] care assistance [id number] Z74.1 [id number] Health Concerns Section Related Observation LastModified by Organization Detai ls LastModified Time None Recorded Concern Status LastModified by Organization Details LastModified Time None Recorded Advance Directives Directive None Recorded Payers Insurance Date Sequence Insurance Name Policy Number Policy Barrett Covered Member ID Barrett Member ID Guarantor Name 05/13/2025 2 [facility] ON OR AFTER 12/31/20 (MEDICAID REPLACEMENT - HMO) [id number] Gila Lui [id number] Gila Lui 05/13/2025 1 [facility] (MEDICARE REPLACEMENT/AD VANTAGE - HMO) [id number] Gila Lui [id number] Gila Lui Notes Date Note Type Note Provider Name and Address Organization Details Recorded Time 08/28/2024 text/html ROS as noted in the HPI GILA WAS SEEN IN THE OFFICE TODAY FOR EVALUATION OF CHRONIC HEPATITS C INFECTION . HCV-RNA 74K, GENOTYPE AND HIV STATUS IS UNKNOWN. PT DENIES IVDA/ BLOOD TX. PT ADMITS TO TATTOO X 40 YRS.PT IS S/P CVA B/C OF A. FIB AND RUNNING OUT OF ELIQUIS.PT WAS SEEN IN THE OFFICE TODAY FOR COLON SCREENING . PT DENIES ABD PAIN /N/V/D/BLEEDING /WT LOSS. Melany Forman MD [address], [place], [address], [email or web address] 08/28/2024 11:39:16 09/12/2024 text/html Pt RTC for routine c/o nails and callus Lt and growth on Lt foot Christ Flores DPM [address], [place], [address], [email or web address] 09/16/2024 08:43:54 02/11/2025 text/html Patient is a 69-year-old female diabetic. She returns for diabetic foot care. Patient overall is doing well. She states that she has noticed a red rash and some heat to her left lower leg. She has some mild worsening swelling of the left lower leg she has bilateral pinning edema. She does not wear any compression of a lower leg. She denies calf pain. Patient denies any fever, chills, now you're vomiting. Patient but also like her knee cut. She is unable to cut them. Patient continues to weight barrier with use of a rolling walker. Patient denies any other complaints. Elio Lake DPM [address], [place], [address], [email or web address] 02/11/2025 14:26:32 02/20/2025 text/html ROS as noted in the HPI . Patient is a 69-year-old female who returns the office for follow-up on left leg cellulitis. Patient states overall she is doing well she denies any further infection of the left leg. Patient denies any calf pain. Patient denies any fever, chills, nausea or vomiting. Elio Lake DPM [address], [place], [address], [email or web address] 02/20/2025 11:47:42 05/13/2025 text/html . Patient is a 69-year-old female she returns to the office for follow-up on lower extremity elongated toenails. Patient states her toenails have significantly improved she has still having difficulty bending over to cut her toenails and states they are elongated. Patient denies any other complaints. Elio Lake DPM [address] [place] [address], [place], [address], [facility] [employer] [facility] 05/13/2025 11:21:43 OBGyn Episode No OBEpisode recorded.
--- OUTSIDE RECORDS SUMMARY | 2025-05-15 08:15 | XMS_ITS | Data Portability ---
Author Organization [facility] Address [address] [place] [address] Care Team Providers Care Ase Master Mechanic Name Role Phone FERNANDO JAIMES Primary Care Provider Assessment Encounter Date Assessment Date Assessment LastModified by Organization Details LastModified Time 08/04/2021 08/04/2021 Incorrect phone number in the chart, unable to reach patient today for visit Not available 08/04/2021 11:52:34 05/23/2022 05/23/2022 EDA Irwin Not available 05/23/2022 13:36:31 05/11/2023 05/11/2023 CORAL Patrick Not available 05/11/2023 14:45:45 Plan of Treatment Reminders Order Date Submit Date Provider Last Modified By Organization Details Last Modified Time Details Appointments None recorded . Lab None recorded . Referral cardiolo gist referral - Hx of afib and CVA 2022 023 [facility], [address], [place], [address], 4 14:32:39 personal home care referral - In need of foreclosure home inspector to help with IADLS, hx of CVA with residual right sided weakness . Requesti ng home visits a few times a week to help with househol d chores. 2022 023 [facility], [address], [place], [address], 4 10:31:[address] referral - Screenin tamir colonosc opy 2022 023 [email or web address] Kris Loera MD, [address] [facility], [place], [address], 4 09:46:53 personal home care referral - In need of foreclosure home inspector to help with IADLS, hx of CVA with residual right sided weakness . Requesti ng home visits a few times a week to help with househol d chores. [address] [facility], [address] [facility], [place], [address], 3 15:44:59 physical therapis t referral - Hx of recent CVA with residual right sided hemipare sis. Good recovery with fdc but wants to continue to gain strength now that she is back home. Current ambulati on with walker 2022 023 [facility], [address] [place], [address], 3 15:45:01 physical therapis t referral - R frozen shoulder 2022 023 [facility], [address] [place], [address], 3 15:45:03 personal home care referral - In need of foreclosure home inspector to help with IADLS, hx of CVA with residual right sided weakness . Requesti ng home visits a few times a week to help with househol d chores. [address] [facility], [address] [facility], [address], [place], [address], 3 11:20:40 physical therapis t referral - Hx of recent CVA with residual right sided hemipare sis. Good recovery with fdc but wants to continue to gain strength now that she is back home. Current ambulati on with walker 2021 022 [facility], [address] [facility], [address], [place], [address], 2 17:32:47 cardiolo gist referral - Hospital ized 08/2021 for stroke, hx of non-comp liance w/ afib. Demand ischemia during stay. Echo showed wll motion abnormal ity on exam 2021 022 [email or web address] [facility], [address] [facility], [address], [place], [address], 2 10:07:02 Procedures None recorded . Surgeries None recorded . Imaging MAMMO, screenin g, digital, bilatera l 2022 023 [facility] [address] [place], [address], 3 17:27:41 DEXA 2022 023 [facility] [address] [place], [address], 3 17:27:23 Medication Orders loratadi ne 10 mg tablet 2022 023 [facility], [address] [place] [address], [id number], 3 14:57:17 fluticas one propiona te 50 mcg/actu ation nasal spray,tidwell spension 2022 023 [facility], [address] [place] [address], [id number], 3 16:43:03 losartan 25 mg tablet 2022 023 [facility], [address] [place] [address], [id number], 3 16:43:04 furosemi de 20 mg tablet 2022 023 [facility], [address] [place] [address], [id number], 3 16:43:04 amlodipi ne 5 mg tablet 2022 023 [facility], [address] [place] [address], [id number], 3 16:43:06 Eliquis 5 mg tablet 2022 023 [facility], [address] [place] [address], [id number], 3 09:49:21 carvedil ol 25 mg tablet 2022 023 [facility], [address] [place] [address], [id number], 3 16:43:05 mirtazap ine 15 mg tablet 2022 023 [facility], [address] [place] [address], [id number], 3 16:43:02 atorvast atin 80 mg tablet 2022 023 [facility], [address] [place] [address], [id number], 3 16:43:06 loratadi ne 10 mg tablet 2022 023 [facility], [address] [place] [address], [id number], 3 22:01:04 fluticas one propiona te 50 mcg/actu ation nasal spray,tidwell spension 2022 023 [facility], [address] [place] [address], [id number], 12:37:12 mirtazap ine 15 mg tablet 2022 023 [facility], [address] [place] [address], [id number], 17:15:28 atorvast atin 80 mg tablet 2022 023 [facility], [address] [place] [address], [id number], 17:15:25 Eliquis 5 mg tablet 2022 023 [facility], [address] [place] [address], [id number], 12:37:06 carvedil ol 25 mg tablet 2022 023 [facility], [address] [place] [address], [id number], 12:37:05 losartan 25 mg tablet 2022 023 [facility], [address] [place] [address], [id number], 17:15:31 furosemi de 20 mg tablet 2022 023 [facility], [address] [place] [address], [id number], 12:37:14 amlodipi ne 5 mg tablet 2022 023 [facility], [address] [place] [address], [id number], 12:37:11 hydrocod one 5 mg-aceta minophen 325 mg tablet 2022 023 [facility], [address] [place] [address], [id number], 11/09/202 3 14:14:48 gabapent in 300 mg capsule 2022 023 [facility], [address] [place] [address], [id number], 3 12:37:14 Tylenol 8 Hour 650 mg tablet,e xtended release 2021 023 [facility], [address] [place] [address], [id number], 3 09:37:12 hydrocod one 5 mg-aceta minophen 325 mg tablet [address] [facility] [address] [facility], [address] [place] [address], [id number], 3 14:14:48 Flonase Allergy Relief 50 mcg/actu ation nasal spray,tidwell spension [address] [facility] [address] [facility], [address] [place] [address], [id number], 2 18:18:41 loratadi ne 10 mg tablet 2021 [facility], [address] [place] [address], [id number], 2 15:31:22 mirtazap ine 15 mg tablet 2021 [facility], [address] [place] [address], [id number], 2 15:31:22 amlodipi ne 5 mg tablet 2021 [facility], [address] [place] [address], [id number], 2 15:31:22 furosemi de 20 mg tablet 2021 [facility], [address] [place] [address], [id number], 15:31:22 losartan 50 mg tablet [address], [address] [place] [address], [id number], 3 15:27:13 Eliquis 5 mg tablet 2021 [facility], [address] [place] [address], [id number], 15:31:22 carvedil ol 25 mg tablet 2021 [facility], [address] [place] [address], [id number], 15:31:22 atorvast atin 80 mg tablet 2021 [facility], [address] [place] [address], [id number], 15:31:22 gabapent in 300 mg capsule [address], [address] [place] [address], [id number], 15:21:53 hydrocod one 5 mg-aceta minophen 325 mg tablet [address], [address] [place] [address], [id number], 3 14:14:48 Patient TargetsNo targets recorded. Patient Instructions Encounter Date Encounter Id Patient Instructions Last Modified By Organization Details Last Modified Time 05/23/2022 [id number] de quervain's tenosynovitis: care instructions Not available 05/23/2022 16:11:50 de quervain's disease: exercises Not available 05/23/2022 16:11:50 A healthy lifestyle: care instructions Not available 05/23/2022 16:11:50 09/01/2022 [id number] plantar fasciitis: care instructions Not available 09/01/2022 15:29:17 plantar fasciitis: exercises Not available 09/01/2022 15:29:17 A healthy lifestyle: care instructions Not available 09/01/2022 15:27:56 frozen shoulder: care instructions Not available 09/01/2022 15:29:17 frozen shoulder: exercises Not available 09/01/2022 15:29:17 05/11/2023 [id number] A healthy lifestyle: care instructions Not available 05/11/2023 14:46:58 frozen shoulder: care instructions Not available 05/11/2023 14:46:58 frozen shoulder: exercises Not available 05/11/2023 14:46:58 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 Demand ischemia during stay. Echo showed wll motion abnormality on exam Referring Physician: Fernando Jaimes Water Reclamation Systems Operator, Encounter Date: 04/14/2022 Personal Home Care Referral for History of cerebrovascular accident In need of foreclosure home inspector to help with IADLS, hx of CVA with residual right sided weakness. Requesting home visits a few times a week to help with shirt closer. Referring Physician: [facility], Encounter Date: 05/23/2022 Physical Therapist Referral for History of cerebrovascular accident Hx of recent CVA with residual right sided hemiparesis. Good recovery with fdc but wants to continue to gain strength now that she is back home. Current ambulation with walker Referring Physician: [facility], Encounter Date: 05/23/2022 Personal Home Care Referral for History of cerebrovascular accident In need of foreclosure home inspector to help with IADLS, hx of CVA with residual right sided weakness. Requesting home visits a few times a week to help with shirt closer. Referring Physician: [facility], Encounter Date: 09/01/2022 Physical Therapist Referral for History of cerebrovascular accident Hx of recent CVA with residual right sided hemiparesis. Good recovery with fdc but wants to continue to gain strength now that she is back home. Current ambulation with walker Referring Physician: [facility], Encounter Date: 09/01/2022 Physical Therapist Referral for Pain of right shoulder joint R frozen shoulder Referring Physician: [facility], Encounter Date: 09/01/2022 Personal Home Care Referral for History of cerebrovascular accident In need of foreclosure home inspector to help with IADLS, hx of CVA with residual right sided weakness. Requesting home visits a few times a week to help with shirt closer. Referring Physician: [facility], Encounter Date: 05/11/2023 Heavy Lift Rigger Referral for At rial fibrillation Hx of afib and CVA Referring Physician: General [facility], Encounter Date: 05/11/2023 Taxi Driver Referral for Screening for malignant neoplasm of colon Screening colonoscopy Referring Physician: General [facility], Encounter Date: 05/11/2023 Results Created Date Observation Date Name Description Value Unit Range Abnormal Flag Note LastModifiedBy Organization Detail LastModifiedTime 01/22/20 22 01/21/2022 COLOG UARD cologuard result Cancel led - Order d not applic able Not Available [facility] [address], [place], [address], 01/21/2022 06:41:53 09/15/1909/14/2021 Tropo pavan I.car diac [Mass /volu me] in Blood troponin I.cardiac [mass/volume ] in serum or plasma by detection limit <= 0.01 NG/mL 1.391 NG/mL high: 0.032N G/mL critical high Tropo pavan I 1.391 (HH) <0.03 2 ng/mL 09/14 10:05 PM CDT [facility] Not Available Not Available 08/28/2024 18:35:44 03/15/20 22 09/14/2021 Tropo pavan I.car diac [Mass /volu me] in Blood interpretati on and review of laboratory results Abnorm al Not Available Not Available 18:35:44 09/15/19 22 09/14/2021 Tropo pavan I.car diac [Mass /volu me] in Blood troponin I.cardiac [mass/volume ] in serum or plasma by detection limit <= 0.01 NG/mL 1.027 NG/mL high: 0.032N G/mL critical high Tropo pavan I 1.027 (HH) <0.03 2 ng/mL 09/14 7:12 PM CDT [facility] Not Available Not Available 08/28/2024 18:35:44 09/15/19 22 09/14/2021 Tropo pavan I.car diac [Mass /volu me] in Blood interpretati on and review of laboratory results Abnorm al Not Available Not Available 18:35:44 09/15/19 22 09/14/2021 Tropo pavan I.car diac [Mass /volu me] in Blood troponin I.cardiac [mass/volume ] in serum or plasma by detection limit <= 0.01 NG/mL 0.619 NG/mL high: 0.032N G/mL critical high Tropo pavan I 0.619 (HH) <0.03 2 ng/mL 09/14 4:25 PM CDT [facility] Not Available Not Available 08/28/2024 18:35:44 09/15/19 22 09/14/2021 Tropo pavan I.car diac [Mass /volu me] in Blood interpretati on and review of laboratory results Abnorm al Not Available Not Available 18:35:44 09/15/19 22 09/14/2021 Tropo pavan I.car diac [Mass /volu me] in Blood troponin I.cardiac [mass/volume ] in serum or plasma by detection limit <= 0.01 NG/mL 0.383 NG/mL high: 0.032N G/mL critical high Tropo pavan I 0.383 (HH) <0.03 2 ng/mL 09/14 1:54 PM CDT [facility] Not Available Not Available 08/28/2024 18:35:44 09/15/19 22 09/14/2021 Tropo pavan I.car diac [Mass /volu me] in Blood interpretati on and review of laboratory results Abnorm al Not Available Not Available 18:35:44 09/15/19 22 09/14/2021 Compr ehens andi metab olic 1999 panel - Serum or Plasm a urea nitrogen [mass/volume ] in serum or plasma 12 mg/dL low: 7mg/dL high: 26mg/d L BUN 12 7 - 26 mg/dL 09/14 12:58 PM CDT [facility] Not Available Not Available 08/28/2024 18:35:44 09/15/19 22 09/14/2021 Compr ehens andi metab olic 1999 panel - Serum or Plasm a creatinine [mass/volume ] in serum or plasma 0.56 mg/dL low: 0.56mg /dLhig h: 0.96mg /dL Creat inine 0.56 0.56 - 0.96 mg/dL 09/14 12:58 PM CDT [facility] Not Available Not Available 08/28/2024 18:35:44 09/15/19 22 09/14/2021 Compr ehens andi metab olic 1999 panel - Serum or Plasm a sodium [moles/volum e] in serum or plasma 141 mmol/ L low: 136mmo l/Lhig h: 145mmo l/L Sodiu m 141 136 - 145 mmol/ L 09/14 12:58 PM CDT [facility] Not Available Not Available 08/28/2024 18:35:44 09/15/19 22 09/14/2021 Compr ehens andi metab olic 1999 panel - Serum or Plasm a potassium [moles/volum e] in serum or plasma 3.2 mmol/ L low: 3.5mmo l/Lhig h: 4.5mmo l/L low Potas sium 3.2 (L) 3.5 - 4.5 mmol/ L 09/14 12:58 PM CDT [facility] Not Available Not Available 08/28/2024 18:35:44 09/15/19 22 09/14/2021 Compr ehens andi metab olic 1999 panel - Serum or Plasm a chloride [moles/volum e] in serum or plasma 108 mmol/ L low: 98mmol /Lhigh : 107mmo l/L high Chlor mel 108 (H) 98 - 107 mmol/ L 09/14 12:58 PM CDT [facility] Not Available Not Available 08/28/2024 18:35:44 09/15/19 22 09/14/2021 Compr ehens andi metab olic 1999 panel - Serum or Plasm a carbon dioxide, total [moles/volum e] in serum or plasma 23 mmol/ L low: 22mmol /Lhigh : 29mmol /L CO2 23 22 - 29 mmol/ L 09/14 12:58 PM CDT [facility] Not Available Not Available 08/28/2024 18:35:44 09/15/19 22 09/14/2021 Compr ehens andi metab olic 1999 panel - Serum or Plasm a glucose [mass/volume ] in serum or plasma 104 mg/dL low: 70mg/d Lhigh: 115mg/ dL Gluco se 104 70 - 115 mg/dL 09/14 12:58 PM CDT [facility] Not Available Not Available 08/28/2024 18:35:44 09/15/19 22 09/14/2021 Compr ehens andi metab olic 1999 panel - Serum or Plasm a calcium [moles/volum e] in serum or plasma 8.2 mg/dL low: 8.4mg/ dLhigh : 10.2mg /dL low Calci um 8.2 (L) 8.4 - 10.2 mg/dL 09/14 12:58 PM CDT [facility] Not Available Not Available 08/28/2024 18:35:44 09/15/19 22 09/14/2021 Compr ehens andi metab olic 1999 panel - Serum or Plasm a protein [mass/volume ] in serum or plasma 7.2 g/dL low: 6g/dLh igh: 8.3g/d L Prote in Total 7.2 6.0 - 8.3 g/dL 09/14 12:58 PM CDT [facility] Not Available Not Available 08/28/2024 18:35:44 09/15/19 22 09/14/2021 Compr Athletes' Performanceens andi metab olic 1999 panel - Serum or Plasm a albumin [mass/volume ] in serum or plasma by bromocresol green (bcg) dye binding method 2.8 g/dL low: 3.4g/d Lhigh: 5g/dL low Album in 2.8 (L) 3.4 - 5.0 g/dL 09/14 12:58 PM CDT [facility] Not Available Not Available 08/28/2024 18:35:44 09/15/19 22 09/14/2021 Compr ens andi metab olic 1999 panel - Serum or Plasm a bilirubin.to naz [mass/volume ] in serum or plasma 1.6 mg/dL low: 0.2mg/ dLhigh : 1.2mg/ dL high Bilir ubin Total 1.6 (H) 0.2 - 1.2 mg/dL 09/14 12:58 PM CDT [facility] Not Available Not Available 08/28/2024 18:35:44 09/15/19 22 09/14/2021 Compr ens nadi metab olic 1999 panel - Serum or Plasm a alkaline phosphatase [enzymatic activity/vol ume] in serum or plasma 54 U/L low: 40U/Lh igh: 150U/L Alkal ine Phosp hatas e 54 40 - 150 U/L 09/14 12:58 PM CDT [facility] Not Available Not Available 08/28/2024 18:35:44 09/15/19 22 09/14/2021 Compr ehens andi metab olic 1999 panel - Serum or Plasm a alanine aminotransfe rase [enzymatic activity/vol ume] in serum or plasma by no addition of P-5'-P 41 U/L low: 5U/Lhi gh: 55U/L ALT 41 5 - 55 U/L 09/14 12:58 PM CDT [facility] Not Available Not Available 08/28/2024 18:35:44 09/15/19 22 09/14/2021 Compr ehens andi metab olic 1999 panel - Serum or Plasm a aspartate aminotransfe rase [enzymatic activity/vol ume] in serum or plasma 82 U/L low: 5U/Lhi gh: 34U/L high AST 82 (H) 5 - 34 U/L 09/14 12:58 PM CDT [facility] Not Available Not Available 08/28/2024 18:35:44 09/15/19 22 09/14/2021 Compr ehens andi metab olic 1999 panel - Serum or Plasm a anion gap 13 low: 8high: 18 Anion Gap 13 8 - 18 09/14 12:58 PM CDT [facility] Not Available Not Available 08/28/2024 18:35:44 09/15/19 22 09/14/2021 Compr ehens andi metab olic 1999 panel - Serum or Plasm a urea nitrogen/cre atinine [mass ratio] in serum or plasma 21 low: 7high: 23 BUN/C reati nine Ratio 21 7 - 23 09/14 12:58 PM CDT [facility] Not Available Not Available 08/28/2024 18:35:44 09/15/19 22 09/14/2021 Compr ehens andi metab olic 1999 panel - Serum or Plasm a osmolality calculated 292 text: 270 - 300 mOsm/k g Osmol ality Calcu lated 292 270 - 300 mOsm/ kg 09/14 12:58 PM CDT [facility] Not Available Not Available 08/28/2024 18:35:44 09/15/19 22 09/14/2021 Compr ehens andi metab olic 1999 panel - Serum or Plasm a albumin/glob ulin ratio 0.6 low: 1.1hig h: 2.3 low Album in/Gl obuli n Ratio 0.6 (L) 1.1 - 2.3 09/14 12:58 PM CDT [facility] Not Available Not Available 08/28/2024 18:35:44 09/15/19 22 09/14/2021 Compr ehens andi metab olic 2000 panel - Serum or Plasm a glomerular filtration rate/1.73 sq M.predicted [volume rate/area] in serum, plasma or blood by creatinine-b ased formula (CKD-epi) text: >=90 mL/min /1.73 m2 eGFR by CKD-E PI >90 >=90 mL/mi n/1.7 3 m2 09/14 12:58 PM CDT [facility] Not Available Not Available 08/28/2024 18:35:44 09/15/19 22 09/14/2021 Compr ehens andi metab olic 1999 panel - Serum or Plasm a interpretati on and review of laboratory results Abnorm al Not Available Not Available 18:35:44 09/15/19 22 09/14/2021 Tropo pavan I.car diac [Mass /volu me] in Blood troponin I.cardiac [mass/volume ] in serum or plasma by detection limit <= 0.01 NG/mL 0.295 NG/mL high: 0.032N G/mL high Tropo pavan I 0.295 (H) <0.03 2 ng/mL 09/14 11:15 AM CDT [facility] Not Available Not Available 08/28/2024 18:35:44 09/15/19 22 09/14/2021 Tropo pavan I.car diac [Mass /volu me] in Blood interpretati on and review of laboratory results Abnorm al Not Available Not Available 18:35:44 09/15/19 22 09/14/2021 Hemog lobin A1c/H emogl obin. total in Blood hemoglobin A1C/hemoglob in.total in blood 4.9 % high: 5.6% Hemog lobin A1c 4.9 <=5.6 % 09/14 4:10 PM CDT [facility] Not Available Not Available 08/28/2024 18:35:44 09/15/19 22 09/14/2021 Hemog lobin A1c/H emogl obin. total in Blood glucose mean value [mass/volume ] in blood estimated from glycated hemoglobin 94 mg/dL Estim ated [place] ge Gluco se 94 mg/dL 09/14 4:10 PM CDT [facility] Not Available Not Available 08/28/2024 18:35:44 09/15/19 22 09/14/2021 Blood type and Indir ect antib sergio scree n panel - Blood blood group antibody screen [presence] in serum or plasma NEG Antib sergio Scree n NEG 09/14 11:22 AM [facility] Not Available Not Available 08/28/2024 18:35:43 09/15/19 22 09/14/2021 Blood type and Indir ect antib sergio scree n panel - Blood ABO and Rh group [type] in blood A POS ABO Rh A POS 09/14 11:22 AM [facility] Not Available Not Available 08/28/2024 18:35:43 09/15/19 22 09/14/2021 Lipid 1995 panel - Serum or Plasm a cholesterol [mass/volume ] in serum or plasma 169 mg/dL high: 200mg/ dL Smiley stero l Total 169 <200 mg/dL 09/14 11:27 AM [facility] Not Available Not Available 08/28/2024 18:35:43 09/15/19 22 09/14/2021 Lipid 1995 panel - Serum or Plasm a cholesterol in HDL [mass/volume ] in serum or plasma 45 mg/dL low: 40mg/d L HDL 45 >40 mg/dL 09/14 11:27 AM [facility] Not Available Not Available 08/28/2024 18:35:43 09/15/19 22 09/14/2021 Lipid 1995 panel - Serum or Plasm a cholesterol in LDL [mass/volume ] in serum or plasma by calculation 104 mg/dL high: 100mg/ dL high LDL Calcu lated 104 (H) <100 mg/dL 09/14 11:27 AM [facility] Not Available Not Available 08/28/2024 18:35:43 09/15/19 22 09/14/2021 Lipid 1995 panel - Serum or Plasm a tricyclic antidepressa nts [mass/volume ] in serum or plasma 101 mg/dL high: 150mg/ dL Trigl yceri low 101 <150 mg/dL 09/14 11:27 AM CDT [facility] Not Available Not Available 08/28/2024 18:35:43 09/15/19 22 09/14/2021 Lipid 1996 panel - Serum or Plasm a interpretati on and review of laboratory results Abnorm al Not Available Not Available 18:35:43 09/15/19 22 09/14/2021 Urina lysis panel - Urine by Auto color UA Yellow text: straw, yellow Color UA Yello w Straw , Yello w 09/14 10:57 AM CDT [facility] Not Available Not Available 08/28/2024 18:35:43 09/15/19 22 09/14/2021 Urina lysis panel - Urine by Auto clarity UA Clear text: clear Alexa ty UA Clear Clear 09/14 10:57 AM CDT [facility] Not Available Not Available 08/28/2024 18:35:43 09/15/19 22 09/14/2021 Urina lysis panel - Urine by Auto specific gravity UA 1.059 low: 1.005h igh: 1.03 high Speci fic Gravi ty UA 1.059 (H) 1.005 - 1.030 09/14 10:57 AM CDT [facility] Not Available Not Available 08/28/2024 18:35:43 09/15/19 22 09/14/2021 Urina lysis panel - Urine by Auto pH UA 6 pH low: 5pHhig h: 8pH pH UA 6.0 5.0 - 8.0 pH 09/14 10:57 AM CDT [facility] Not Available Not Available 08/28/2024 18:35:43 09/15/19 22 09/14/2021 Urina lysis panel - Urine by Auto protein UA 1+ text: negati ve abnormal Prote in UA 1+ (A) Negat andi 09/14 10:57 AM CDT [facility] Not Available Not Available 08/28/2024 18:35:43 09/15/19 22 09/14/2021 Urina lysis panel - Urine by Auto glucose UA Negati ve text: negati ve Gluco se UA Negat andi Negat andi 09/14 10:57 AM CDT [facility] NAZ Not Available Not Available 08/28/2024 18:35:43 09/15/19 22 09/14/2021 Urina lysis panel - Urine by Auto ketone UA Negati ve text: negati ve Keton e UA Negat andi Negat andi 09/14 10:57 AM CDT [facility] NAZ Not Available Not Available 08/28/2024 18:35:43 09/15/19 22 09/14/2021 Urina lysis panel - Urine by Auto bilirubin UA Negati ve text: negati ve Bilir ubin UA Negat andi Negat andi 09/14 10:57 AM CDT [facility] NAZ Not Available Not Available 08/28/2024 18:35:43 09/15/19 22 09/14/2021 Urina lysis panel - Urine by Auto blood UA Negati ve text: negati ve Blood UA Negat andi Negat andi 09/14 10:57 AM CDT [facility] NAZ Not Available Not Available 08/28/2024 18:35:43 09/15/19 22 09/14/2021 Urina lysis panel - Urine by Auto nitrite UA Negati ve text: negati ve Nitri te UA Negat andi Negat andi 09/14 10:57 [facility] Not Available Not Available 08/28/2024 18:35:43 09/15/19 22 09/14/2021 Urina lysis panel - Urine by Auto leukocyte esterase Negati ve text: negati ve Leuko cyte Nidia ase Negat andi Negat andi 09/14 10:57 AM CDT [facility] NAZ Not Available Not Available 08/28/2024 18:35:43 09/15/19 22 09/14/2021 Urina lysis panel - Urine by Auto urobilinogen UA 2 mg/dL text: negati ve abnormal Urobi linog en UA 2.0 (A) Negat andi mg/dL 09/14 10:57 AM CDT [facility] NAZ Not Available Not Available 08/28/2024 18:35:43 09/15/19 22 09/14/2021 Urina lysis panel - Urine by Auto RBC UA 0-2 text: none seen, 0-2, 3-5 /hpf RBC UA 0-2 None Seen, 0-2, 3-5 /HPF 09/14 10:57 AM CDT [facility] NAZ Not Available Not Available 08/28/2024 18:35:43 09/15/19 22 09/14/2021 Urina lysis panel - Urine by Auto WBC UA 0-5 text: none seen, 0-5 /hpf WBC UA 0-5 None Seen, 0-5 /HPF 09/14 10:57 AM CDT [facility] NAZ Not Available Not Available 08/28/2024 18:35:43 09/15/19 22 09/14/2021 Urina lysis panel - Urine by Auto bacteria UA Trace text: none /hpf abnormal Bacte antonia UA Trace (A) None /HPF 09/14 10:57 AM CDT [facility] NAZ Not Available Not Available 08/28/2024 18:35:43 09/15/19 22 09/14/2021 Urina lysis panel - Urine by Auto squamous epithelial cells UA 0-2 text: none seen, 0-2, 3-5 /hpf Squam ous Epith elial Cells UA 0-2 None Seen, 0-2, 3-5 /HPF 09/14 10:57 AM CDT [facility] NAZ Not Available Not Available 08/28/2024 18:35:43 09/15/19 22 09/14/2021 Urina lysis panel - Urine by Auto mucus UA 1+ text: /lpf Mucus UA 1+ /LPF 09/14 10:57 AM CDT [facility] NAZ Not Available Not Available 08/28/2024 18:35:43 09/15/19 22 09/14/2021 Urina lysis panel - Urine by Auto Unknown Analyte Not Available Not Available 08/04 18:35:43 09/15/19 22 09/14/2021 Urina lysis panel - Urine by Auto interpretati on and review of laboratory results Abnorm al Not Available Not Available 18:35:43 09/15/19 22 09/14/2021 Drugs ident ified in Urine by Scree n metho d amphetamine+ methamphetam ine [mass/volume ] in urine by screen method Negati ve text: negati ve: < 1000 NG/mL Amphe tamin es Scree n Urine Negat andi Negat andi: < 1000 ng/mL 09/14 10:54 AM CDT [facility] NAZ Not Available Not Available 08/28/2024 18:35:43 09/15/19 22 09/14/2021 Drugs ident ified in Urine by Scree n metho d barbiturates [presence] in urine by screen method >200 NG/mL Negati ve text: negati ve: < 200 NG/mL Stefany turat es Scree n Urine Negat andi Negat andi: < 200 ng/mL 09/14 10:54 AM CDT [facility] NAZ Not Available Not Available 08/28/2024 18:35:43 09/15/19 22 09/14/2021 Drugs ident ified in Urine by Scree n metho d benzodiazepi ashley [presence] in urine by screen method >200 NG/mL Negati ve text: negati ve: < 200 NG/mL Benzo diaze pine Scree n Urine Negat andi Negat andi: < 200 ng/mL 09/14 10:54 AM CDT [facility] NAZ Not Available Not Available 08/28/2024 18:35:43 09/15/19 22 09/14/2021 Drugs ident ified in Urine by Scree n metho d opiates [presence] in urine by screen method Negati ve text: negati ve: < 300 NG/mL Opiat es Urine Negat andi Negat andi: < 300 ng/mL 09/14 10:54 AM CDT [facility] NAZ Not Available Not Available 08/28/2024 18:35:43 09/15/19 22 09/14/2021 Drugs ident ified in Urine by Scree n metho d benzoylecgon ine [presence] in urine by screen method Positi ve text: negati ve: < 300 NG/mL abnormal Cocai ne Metab olite s Urine Posit andi (A) Negat andi: < 300 ng/mL 09/14 10:54 AM CDT [facility] NAZ Not Available Not Available 08/28/2024 18:35:43 09/15/19 22 09/14/2021 Drugs ident ified in Urine by Scree n metho d phencyclidin e [presence] in urine by screen method >25 NG/mL Negati ve text: negati ve: < 25 NG/mL Phenc yclid ine Scree n Urine Negat andi Negat andi: < 25 ng/ml 09/14 10:54 AM CDT [facility] NAZ Not Available Not Available 08/28/2024 18:35:43 09/15/19 22 09/14/2021 Drugs ident ified in Urine by Scree n metho d cannabinoids [presence] in urine by screen method Negati ve text: negati ve: <50 NG/mL Canna binoi ds Scree n Urine Negat andi Negat andi: <50 ng/mL 09/14 10:54 AM CDT [facility] NAZ Not Available Not Available 08/28/2024 18:35:43 09/15/19 22 09/14/2021 Drugs ident ified in Urine by Scree n metho d methadone [presence] in urine by screen method >300 NG/mL Negati ve text: negati ve: < 300 NG/mL Metha done Scree n Urine Negat andi Negat andi: < 300 ng/mL 09/14 10:54 AM CDT [facility] NAZ Not Available Not Available 08/28/2024 18:35:43 09/15/19 22 09/14/2021 Drugs ident ified in Urine by Scree n metho d fentanyl screen urine Negati ve text: negati ve: <1.0 NG/mL Fenta nyl Scree n Urine Negat andi Negat andi: <1.0 ng/mL 09/14 10:54 AM CDT [facility] NAZ Not Available Not Available 08/28/2024 18:35:43 09/15/19 22 09/14/2021 Drugs ident ified in Urine by Scree n metho d Unknown Analyte The Urine Toxico logy Screen ing Panel does not screen for Propox yphene , Meprob amate, Cariso prodol , Trazod one, over-t he-cou nter medica tions and/or volati les (Aceto ne, Isopro panol, Methan ol or Ethyle ne Glycol ). Ethano l, Salicy late, Acetam inophe n, Tricyc lic Antide pressa nts and severa l therap eutic drugs may be indivi dually assaye d in serum or plasma specim en. Toxico logy testin g by the [facility] is an aid to medica l diagno sis and treatm ent of patien ts. No docume nted chain of custod y was mainta ined. Result s are intend ed to be used for clinic al purpos es only. The Urine Toxic ology Scree keya Panel does not scree n for Propo xyphe ne, Mepro bamat e, Caris oprod ol, Trazo done, over- the-c ounte r medic ation s and/o r volat juileta (Acet one, Isopr opano l, Metha nol or Ethyl anika Glyco l). Dimas ol, Salic ylate , Aceta minop hen, Tricy clic Antid epres sants and sever al thera peuti c drugs may be indiv idual ly assay ed in serum or plasm a speci men. Toxic ology testi ng by the [facility] is an aid to medic al diagn osis and treat ment of patie nts. No docum ented chain of custo dy was maint ained . Resul ts are inten ded to be used for clini niels purpo ses only. Not Available Not Available 08/28/2024 18:35:43 09/15/19 22 09/14/2021 Drugs ident ified in Urine by Scree n metho d interpretati on and review of laboratory results Abnorm al Not Available Not Available 18:35:43 09/15/19 22 09/14/2021 ABO and Rh group [Type ] in Blood ABO and Rh group [type] in blood A POS ABO Rh A POS 09/14 11:13 AM CDT [facility] Not Available Not Available 08/28/2024 18:35:43 09/15/19 22 09/14/2021 Lacta te [Mole s/vol ume] in Serum or Plasm a lactate [moles/volum e] in serum or plasma 1.9 mmol/ L high: 2mmol/ L Lacti c Acid- Stat 1.9 <=2.0 mmol/ L 09/14 6:50 AM CDT [facility] NAZ Not Available Not Available 08/28/2024 18:35:43 09/15/19 22 09/14/2021 Lacta te [Mole s/vol ume] in Serum or Plasm a interpretati on and review of laboratory results Normal Not Available Not Available 08/04 18:35:43 09/15/19 22 09/14/2021 Dimas ol [Mass /volu me] in Serum or Plasm a ethanol [mass/volume ] in serum or plasma high: 10mg/d L Dimas ol (mg/d L) <10 <10 mg/dL 09/14 6:58 AM CDT [facility] NAZ Not Available Not Available 08/28/2024 18:35:43 09/15/19 22 09/14/2021 Dimas ol [Mass /volu me] in Serum or Plasm a ethanol [mass/volume ] in blood high: 0.01g/ dL Dimas ol Calcu lated (g/dL ) <0.01 0 <0.01 0 g/dL 09/14 6:58 AM CDT [facility] NAZ Not Available Not Available 08/28/2024 18:35:43 09/15/19 22 09/14/2021 Dimas ol [Mass /volu me] in Serum or Plasm a Unknown Analyte Ethano l Interp <10: None Detect ed. Depres jose of [employer]: >100 mg/dl Potent ially Critic al: >250 mg/dl Potent ially Fatal >400 mg/dl Ethano l in the patien t's blood will contri bute to the osmola r gap. Ethano l's contri bution to the osmola r gap can be estima jim by dividi ng the concen tratio n of ethano l in mg/dL by 4.6. This test is for clinic al use only and does not equal a CHANELL for legal purpos es. Dimas ol Inter p <10: None Detec jim. Depre ssion of [employer]: >100 mg/dl Poten tiall y Criti niels: >250 mg/dl Poten tiall y Fatal >400 mg/dl Dimas ol in the patie nt's blood will contr ibute to the osmol ar gap. Dimas ol's contr ibuti on to the osmol ar gap can be estim ated by divid ing the frantz ntrat ion of dimas ol in mg/dL by 4.6. This test is for clini niels use only and does not equal a CHANELL for legal purpo ses. Not Available Not Available 08/28/2024 18:35:43 09/15/19 22 09/14/2021 Dimas ol [Mass /volu me] in Serum or Plasm a interpretati on and review of laboratory results Normal Not Available Not Available 08/04 18:35:43 09/15/19 22 09/14/2021 CBC panel - Blood by Autom ated count leukocytes [#/volume] in blood by automated count 4 text: 3.5 - 10.5 10 3/uL WBC 4.0 3.5 - 10.5 10 3/uL 09/14 6:38 AM CDT [facility] NAZ Not Available Not Available 08/28/2024 18:35:43 09/15/19 22 09/14/2021 CBC panel - Blood by Autom ated count erythrocytes [#/volume] in blood by automated count 5.95 text: 3.80 - 5.20 10 6/uL high RBC 5.95 (H) 3.80 - 5.20 10 6/uL 09/14 6:38 AM CDT [facility] NAZ Not Available Not Available 08/28/2024 18:35:43 09/15/19 22 09/14/2021 CBC panel - Blood by Autom ated count hemoglobin [mass/volume ] in blood 16.4 g/dL low: 12g/dL high: 15.6g/ dL high Hemog lobin 16.4 (H) 12.0 - 15.6 g/dL 09/14 6:38 AM [facility] Not Available 08/28/2024 18:35:43 09/15/19 22 09/14/2021 CBC panel - Blood by Autom ated count hematocrit [volume fraction] of blood by automated count 49.3 % low: 35%hig h: 45% high Hemat ocrit 49.3 (H) 35.0 - 45.0 % 09/14 6:38 AM [facility] Not Available Not Available 08/28/2024 18:35:43 09/15/19 22 09/14/2021 CBC panel - Blood by Autom ated count MCV [entitic volume] by automated count 82.9 fL low: 80.7fL high: 98.3fL MCV 82.9 80.7 - 98.3 fL 09/14 6:38 AM [facility] Not Available Not Available 08/28/2024 18:35:43 09/15/19 22 09/14/2021 CBC panel - Blood by Autom ated count MCH [entitic mass] by automated count 27.6 pg low: 26.7pg high: 34pg MCH 27.6 26.7 - 34.0 pg 09/14 6:38 AM [facility] Not Available Not Available 08/28/2024 18:35:43 09/15/19 22 09/14/2021 CBC panel - Blood by Autom ated count MCHC [mass/volume ] by automated count 33.3 g/dL low: 30.8g/ dLhigh : 35.9g/ dL MCHC 33.3 30.8 - 35.9 g/dL 09/14 6:38 AM [facility] Not Available Not Available 08/28/2024 18:35:43 09/15/19 22 09/14/2021 CBC panel - Blood by Autom ated count platelets [#/volume] in blood by automated count 153 text: 150 - 400 10 3/uL Plate let Count 153 150 - 400 10 3/uL 09/14 6:38 AM [facility] [employer] [facility] Not Available Not Available 08/28/2024 18:35:43 09/15/19 22 09/14/2021 CBC panel - Blood by Autom ated count erythrocyte distribution width [entitic volume] by automated count 46.4 fL low: 36fLhi gh: 50fL RDW-S D 46.4 36.0 - 50.0 fL 09/14 6:38 AM [facility] [employer] [facility] Not Available Not Available 08/28/2024 18:35:43 09/15/19 22 09/14/2021 CBC panel - Blood by Autom ated count erythrocyte distribution width [ratio] by automated count 15.8 % low: 11.2%h igh: 14.8% high RDW-C V 15.8 (H) 11.2 - 14.8 % 09/14 6:38 AM [facility] [employer] [facility] Not Available Not Available 08/28/2024 18:35:43 09/15/19 22 09/14/2021 CBC panel - Blood by Autom ated count platelet mean volume [entitic volume] in blood by automated count 11 fL low: 9.4fLh igh: 12.9fL MPV 11.0 9.4 - 12.9 fL 09/14 6:38 AM [facility] [employer] [facility] Not Available Not Available 08/28/2024 18:35:43 09/15/19 22 09/14/2021 CBC panel - Blood by Autom ated count nucleated erythrocytes [#/volume] in blood by automated count 0 text: 0 10 3/uL nRBC Absol [place] band 0.00 0 10 3/uL 09/14 6:38 AM [facility] [employer] [facility] NA[facility] Not Available Not Available 08/28/2024 18:35:43 09/15/19 22 09/14/2021 CBC panel - Blood by Autom ated count nucleated erythrocytes /100 leukocytes [ratio] in blood by automated count 0 text: 0 /100 WBC nRBC Auto 0.0 0 /100 WBC 09/14 6:38 AM [facility] [employer] [facility] NAZ Not Available Not Available 08/28/2024 18:35:43 09/15/19 22 09/14/2021 CBC panel - Blood by Autom ated count interpretati on and review of laboratory results Abnorm al Not Available Not Available 18:35:43 09/15/19 22 09/14/2021 Creat inine [Mass /volu me] in Blood creatinine [mass/volume ] in blood 0.48 mg/dL low: 0.3mg/ dLhigh : 1.3mg/ dL Creat inine POCT 0.48 0.30 - 1.30 mg/dL 09/14 7:06 AM T [facility] [employer] [facility] NAZ Not Available Not Available 08/28/2024 18:35:43 09/15/19 22 09/14/2021 Creat inine [Mass /volu me] in Blood glomerular filtration rate/1.73 sq M.predicted [volume rate/area] in serum, plasma or blood by creatinine-b ased formula (CKD-epi) text: >90 mL/min /1.73 m2 eGFR >90 >90 mL/mi n/1.7 3 m2 09/14 7:06 AM T [facility] [employer] [facility] NAZ Not Available Not Available 08/28/2024 18:35:43 09/15/19 22 09/14/2021 Creat inine [Mass /volu me] in Blood interpretati on and review of laboratory results Normal Not Available Not Available 08/04 18:35:43 09/15/19 22 09/14/2021 INR in Blood by Coagu latio n assay INR in capillary blood by coagulation assay 1.2 low: 0.9hig h: 1.2 INR 1.2 0.9 - 1.2 09/14 7:06 AM T [facility] [employer] [facility] NAZ Not Available Not Available 08/28/2024 18:35:43 09/15/19 22 09/14/2021 INR in Blood by Coagu latio n assay type of oxygen saturation device [id number] Dev[address] e [id number] 09/14 7:06 AM CDT [facility] Not Available Not Available 08/28/2024 18:35:43 09/15/19 22 09/14/2021 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 [place] [id number] 09/14 7:06 AM CDT [facility] Not Available Not Available 08/28/2024 18:35:43 09/16/19 22 09/15/2021 Tropo pavan I.car diac [Mass /volu me] in Blood troponin I.cardiac [mass/volume ] in serum or plasma by detection limit <= 0.01 NG/mL 1.634 NG/mL high: 0.032N G/mL critical high Tropo pavan I 1.634 (HH) <0.03 2 ng/mL 09/15 1:15 PM [facility]T [facility] Not Available Not Available 08/28/2024 18:35:44 09/16/19 22 09/15/2021 Tropo pavan I.car diac [Mass /volu me] in Blood interpretati on and review of laboratory results Abnorm al Not Available Not Available 18:35:44 09/16/19 22 09/15/2021 Tropo pavan I.car diac [Mass /volu me] in Blood troponin I.cardiac [mass/volume ] in serum or plasma by detection limit <= 0.01 NG/mL 1.756 NG/mL high: 0.032N G/mL critical high Tropo pavan I 1.756 (HH) <0.03 2 ng/mL 09/15 9:55 AM CDT [facility] Not Available Not Available 08/28/2024 18:35:44 09/16/19 22 09/15/2021 Tropo pavan I.car diac [Mass /volu me] in Blood interpretati on and review of laboratory results Abnorm al Not Available Not Available 18:35:44 09/16/19 22 09/15/2021 Tropo pavan I.car diac [Mass /volu me] in Blood troponin I.cardiac [mass/volume ] in serum or plasma by detection limit <= 0.01 NG/mL 1.816 NG/mL high: 0.032N G/mL critical high Tropo pavan I 1.816 (HH) <0.03 2 ng/mL 09/15 6:46 AM CDT [facility] [employer] [facility] NAZ Not Available Not Available 08/28/2024 18:35:44 09/16/19 22 09/15/2021 Tropo pavan I.car diac [Mass /volu me] in Blood interpretati on and review of laboratory results Abnorm al Not Available Not Available 18:35:44 09/16/19 22 09/15/2021 Phosp hate [Mass /volu me] in Serum or Plasm a phosphate [mass/volume ] in serum or plasma 3.2 mg/dL low: 2.9mg/ dLhigh : 5.1mg/ dL Phosp horus 3.2 2.9 - 5.1 mg/dL 09/14 11:55 PM CDT [facility] [employer] [facility] NAZ Not Available Not Available 08/28/2024 18:35:44 09/16/19 22 09/15/2021 Phosp hate [Mass /volu me] in Serum or Plasm a interpretati on and review of laboratory results Normal Not Available Not Available 08/04 18:35:44 09/16/19 22 09/15/2021 Magne sium [Mass /volu me] in Serum or Plasm a magnesium [mass/volume ] in serum or plasma 1.8 mg/dL low: 1.6mg/ dLhigh : 2.6mg/ dL Magne sium 1.8 1.6 - 2.6 mg/dL 09/14 11:55 PM CDT [facility] [employer] [facility] NAZ Not Available Not Available 08/28/2024 18:35:44 09/16/19 22 09/15/2021 Magne sium [Mass /volu me] in Serum or Plasm a interpretati on and review of laboratory results Normal Not Available Not Available 08/04 18:35:44 09/16/19 22 09/15/2021 CBC panel - Blood by Autom ated count leukocytes [#/volume] in blood by automated count 4.6 text: 3.5 - 10.5 10 3/uL WBC 4.6 3.5 - 10.5 10 3/uL 09/14 11:37 PM CDT [facility] [employer] [facility] Not Available Not Available 08/28/2024 18:35:44 09/16/19 22 09/15/2021 CBC panel - Blood by Autom ated count erythrocytes [#/volume] in blood by automated count 5.11 text: 3.80 - 5.20 10 6/uL RBC 5.11 3.80 - 5.20 10 6/uL 09/14 11:37 PM CDT [facility] [employer] [facility] Not Available Not Available 08/28/2024 18:35:44 09/16/19 22 09/15/2021 CBC panel - Blood by Autom ated count hemoglobin [mass/volume ] in blood 14.4 g/dL low: 12g/dL high: 15.6g/ dL Hemog lobin 14.4 12.0 - 15.6 g/dL 09/14 11:37 PM T [facility] [employer] [facility] NAZ Not Available Not Available 08/28/2024 18:35:44 09/16/19 22 09/15/2021 CBC panel - Blood by Autom ated count hematocrit [volume fraction] of blood by automated count 41.6 % low: 35%hig h: 45% Hemat ocrit 41.6 35.0 - 45.0 % 09/14 11:37 PM T [facility] [employer] [facility] Not Available Not Available 08/28/2024 18:35:44 09/16/19 22 09/15/2021 CBC panel - Blood by Autom ated count MCV [entitic volume] by automated count 81.4 fL low: 80.7fL high: 98.3fL MCV 81.4 80.7 - 98.3 fL 09/14 11:37 PM CDT [facility] [employer] [facility] Not Available Not Available 08/28/2024 18:35:44 09/16/19 22 09/15/2021 CBC panel - Blood by Autom ated count MCH [entitic mass] by automated count 28.2 pg low: 26.7pg high: 34pg MCH 28.2 26.7 - 34.0 pg 09/14 11:37 PM [facility] Not Available Not Available 08/28/2024 18:35:44 09/16/19 22 09/15/2021 CBC panel - Blood by Autom ated count MCHC [mass/volume ] by automated count 34.6 g/dL low: 30.8g/ dLhigh : 35.9g/ dL MCHC 34.6 30.8 - 35.9 g/dL 09/14 11:37 PM [facility] Not Available Not Available 08/28/2024 18:35:44 09/16/19 22 09/15/2021 CBC panel - Blood by Autom ated count platelets [#/volume] in blood by automated count 138 text: 150 - 400 10 3/uL low Plate let Count 138 (L) 150 - 400 10 3/uL 09/14 11:37 PM [facility] NAZ Not Available Not Available 08/28/2024 18:35:44 09/16/19 22 09/15/2021 CBC panel - Blood by Autom ated count erythrocyte distribution width [entitic volume] by automated count 44.8 fL low: 36fLhi gh: 50fL RDW-S D 44.8 36.0 - 50.0 fL 09/14 11:37 PM [facility] Not Available Not Available 08/28/2024 18:35:44 09/16/19 22 09/15/2021 CBC panel - Blood by Autom ated count erythrocyte distribution width [ratio] by automated count 15.3 % low: 11.2%h igh: 14.8% high RDW-C V 15.3 (H) 11.2 - 14.8 % 09/14 11:37 PM [facility] Not Available Not Available 08/28/2024 18:35:44 09/16/19 22 09/15/2021 CBC panel - Blood by Autom ated count platelet mean volume [entitic volume] in blood by automated count 10.8 fL low: 9.4fLh igh: 12.9fL MPV 10.8 9.4 - 12.9 fL 09/14 11:37 PM [facility] Not Available Not Available 08/28/2024 18:35:44 09/16/19 22 09/15/2021 CBC panel - Blood by Autom ated count nucleated erythrocytes [#/volume] in blood by automated count 0 text: 0 10 3/uL nRBC Absol [place] band 0.00 0 10 3/uL 09/14 11:37 PM [facility]T [facility] Not Available Not Available 08/28/2024 18:35:44 09/16/19 22 09/15/2021 CBC panel - Blood by Autom ated count nucleated erythrocytes /100 leukocytes [ratio] in blood by automated count 0 text: 0 /100 WBC nRBC Auto 0.0 0 /100 WBC 09/14 11:37 PM [facility] Not Available Not Available 08/28/2024 18:35:44 09/16/19 22 09/15/2021 CBC panel - Blood by Autom ated count interpretati on and review of laboratory results Abnorm al Not Available Not Available 18:35:44 09/16/19 22 09/15/2021 Basic metab olic 1999 panel - Serum or Plasm a urea nitrogen [mass/volume ] in serum or plasma 10 mg/dL low: 7mg/dL high: 26mg/d L BUN 10 7 - 26 mg/dL 09/14 11:55 PM [facility] Not Available Not Available 08/28/2024 18:35:44 09/16/19 22 09/15/2021 Basic metab olic 1999 panel - Serum or Plasm a creatinine [mass/volume ] in serum or plasma 0.63 mg/dL low: 0.56mg /dLhig h: 0.96mg /dL Creat inine 0.63 0.56 - 0.96 mg/dL 09/14 11:55 PM CDT [facility] Not Available Not Available 08/28/2024 18:35:44 09/16/19 22 09/15/2021 Basic metab olic 2000 panel - Serum or Plasm a sodium [moles/volum e] in serum or plasma 140 mmol/ L low: 136mmo l/Lhig h: 145mmo l/L Tracy m 140 136 - 145 mmol/ L 09/14 11:55 PM CDT [facility] NAZ Not Available Not Available 08/28/2024 18:35:44 09/16/19 22 09/15/2021 Basic metab olic 1999 panel - Serum or Plasm a potassium [moles/volum e] in serum or plasma 3.5 mmol/ L low: 3.5mmo l/Lhig h: 4.5mmo l/L Potas sium 3.5 3.5 - 4.5 mmol/ L 09/14 11:55 PM CDT [facility] NA[facility] Not Available Not Available 08/28/2024 18:35:44 09/16/19 22 09/15/2021 Basic metab olic 2000 panel - Serum or Plasm a chloride [moles/volum e] in serum or plasma 106 mmol/ L low: 98mmol /Lhigh : 107mmo l/L Chlor mel 106 98 - 107 mmol/ L 09/14 11:55 PM CDT [facility] NA[facility] Not Available Not Available 08/28/2024 18:35:44 09/16/19 22 09/15/2021 Basic metab olic 1999 panel - Serum or Plasm a carbon dioxide, total [moles/volum e] in serum or plasma 23 mmol/ L low: 22mmol /Lhigh : 29mmol /L CO2 23 22 - 29 mmol/ L 09/14 11:55 PM T [facility] NAZ Not Available Not Available 08/28/2024 18:35:44 09/16/19 22 09/15/2021 Basic metab olic 1999 panel - Serum or Plasm a glucose [mass/volume ] in serum or plasma 99 mg/dL low: 70mg/d Lhigh: 115mg/ dL Gluco se 99 70 - 115 mg/dL 09/14 11:55 PM CDT [facility] NAZ Not Available Not Available 08/28/2024 18:35:44 09/16/19 22 09/15/2021 Basic metab olic 2000 panel - Serum or Plasm a calcium [moles/volum e] in serum or plasma 8.6 mg/dL low: 8.4mg/ dLhigh : 10.2mg /dL Calci um 8.6 8.4 - 10.2 mg/dL 09/14 11:55 PM CDT [facility] NA[facility] Not Available Not Available 08/28/2024 18:35:44 09/16/19 22 09/15/2021 Basic metab olic 2000 panel - Serum or Plasm a anion gap 15 low: 8high: 18 Anion Gap 15 8 - 18 09/14 11:55 PM CDT [facility] Not Available Not Available 08/28/2024 18:35:44 09/16/19 22 09/15/2021 Basic metab olic 2000 panel - Serum or Plasm a urea nitrogen/cre atinine [mass ratio] in serum or plasma 16 low: 7high: 23 BUN/C reati nine Ratio 16 7 - 23 09/14 11:55 PM CDT [facility] Not Available Not Available 08/28/2024 18:35:44 09/16/19 22 09/15/2021 Basic metab olic 2000 panel - Serum or Plasm a osmolality calculated 289 text: 270 - 300 mOsm/k g Osmol iwona Pappas lated 289 270 - 300 mOsm/ kg 09/14 11:55 PM CDT [facility] Not Available Not Available 08/28/2024 18:35:44 09/16/19 22 09/15/2021 Basic metab olic 2000 panel - Serum or Plasm a glomerular filtration rate/1.73 sq M.predicted [volume rate/area] in serum, plasma or blood by creatinine-b ased formula (CKD-epi) text: >=90 mL/min /1.73 m2 eGFR by CKD-E PI >90 >=90 mL/mi n/1.7 3 m2 09/14 11:55 PM CDT [facility] Not Available Not Available 08/28/2024 18:35:44 09/16/19 22 09/15/2021 Basic metab olic 2000 panel - Serum or Plasm a interpretati on and review of laboratory results Normal Not Available Not Available 08/04 18:35:44 09/17/19 22 09/16/2021 Phosp hate [Mass /volu me] in Serum or Plasm a phosphate [mass/volume ] in serum or plasma 3.2 mg/dL low: 2.9mg/ dLhigh : 5.1mg/ dL Phosp horus 3.2 2.9 - 5.1 mg/dL 09/16 5:09 AM CDT [facility] Not Available Not Available 08/28/2024 18:35:45 09/17/19 22 09/16/2021 Phosp hate [Mass /volu me] in Serum or Plasm a interpretati on and review of laboratory results Normal Not Available Not Available 08/04 18:35:45 09/17/19 22 09/16/2021 Magne sium [Mass /volu me] in Serum or Plasm a magnesium [mass/volume ] in serum or plasma 1.7 mg/dL low: 1.6mg/ dLhigh : 2.6mg/ dL Magne sium 1.7 1.6 - 2.6 mg/dL 09/16 5:09 AM T [facility] Not Available Not Available 08/28/2024 18:35:45 09/17/19 22 09/16/2021 Magne sium [Mass /volu me] in Serum or Plasm a interpretati on and review of laboratory results Normal Not Available Not Available 08/04 18:35:45 09/17/19 22 09/16/2021 Basic metab olic 1999 panel - Serum or Plasm a urea nitrogen [mass/volume ] in serum or plasma 7 mg/dL low: 7mg/dL high: 26mg/d L BUN 7 7 - 26 mg/dL 09/16 5:09 AM [facility] Not Available Not Available 08/28/2024 18:35:45 09/17/19 22 09/16/2021 Basic metab olic 2000 panel - Serum or Plasm a creatinine [mass/volume ] in serum or plasma 0.68 mg/dL low: 0.56mg /dLhig h: 0.96mg /dL Creat inine 0.68 0.56 - 0.96 mg/dL 09/16 5:09 AM CDT [facility] Not Available Not Available 08/28/2024 18:35:45 09/17/19 22 09/16/2021 Basic metab olic 1999 panel - Serum or Plasm a sodium [moles/volum e] in serum or plasma 140 mmol/ L low: 136mmo l/Lhig h: 145mmo l/L Sodiu m 140 136 - 145 mmol/ L 09/16 5:09 AM CDT [facility] Not Available Not Available 08/28/2024 18:35:45 09/17/19 22 09/16/2021 Basic metab olic 1999 panel - Serum or Plasm a potassium [moles/volum e] in serum or plasma 3.5 mmol/ L low: 3.5mmo l/Lhig h: 4.5mmo l/L Potas sium 3.5 3.5 - 4.5 mmol/ L 09/16 5:09 AM T [facility] Not Available Not Available 08/28/2024 18:35:45 09/17/19 22 09/16/2021 Basic metab olic 1999 panel - Serum or Plasm a chloride [moles/volum e] in serum or plasma 106 mmol/ L low: 98mmol /Lhigh : 107mmo l/L Chlor mel 106 98 - 107 mmol/ L 09/16 5:09 AM T [facility] Not Available Not Available 08/28/2024 18:35:45 09/17/19 22 09/16/2021 Basic metab olic 1999 panel - Serum or Plasm a carbon dioxide, total [moles/volum e] in serum or plasma 20 mmol/ L low: 22mmol /Lhigh : 29mmol /L low CO2 20 (L) 22 - 29 mmol/ L 09/16 5:09 AM CDT [facility] Not Available Not Available 08/28/2024 18:35:45 09/17/19 22 09/16/2021 Basic metab olic 1999 panel - Serum or Plasm a glucose [mass/volume ] in serum or plasma 82 mg/dL low: 70mg/d Lhigh: 115mg/ dL Gluco se 82 70 - 115 mg/dL 09/16 5:09 AM CDT [facility] Not Available Not Available 08/28/2024 18:35:45 09/17/19 22 09/16/2021 Basic metab olic 1999 panel - Serum or Plasm a calcium [moles/volum e] in serum or plasma 8.4 mg/dL low: 8.4mg/ dLhigh : 10.2mg /dL Calci um 8.4 8.4 - 10.2 mg/dL 09/16 5:09 AM CDT [facility] Not Available Not Available 08/28/2024 18:35:45 09/17/19 22 09/16/2021 Basic metab olic 1999 panel - Serum or Plasm a anion gap 18 low: 8high: 18 Anion Gap 18 8 - 18 09/16 5:09 AM CDT [facility] Not Available Not Available 08/28/2024 18:35:45 09/17/19 22 09/16/2021 Basic metab olic 1999 panel - Serum or Plasm a urea nitrogen/cre atinine [mass ratio] in serum or plasma 10 low: 7high: 23 BUN/C reati nine Ratio 10 7 - 23 09/16 5:09 AM [facility] Not Available Not Available 08/28/2024 18:35:45 09/17/19 22 09/16/2021 Basic metab olic 1999 panel - Serum or Plasm a osmolality calculated 287 text: 270 - 300 mOsm/k g Osmol ality Calcu lated 287 270 - 300 mOsm/ kg 09/16 5:09 AM T [facility] Not Available Not Available 08/28/2024 18:35:45 09/17/19 22 09/16/2021 Basic metab olic 1999 panel - Serum or Plasm a glomerular filtration rate/1.73 sq M.predicted [volume rate/area] in serum, plasma or blood by creatinine-b ased formula (CKD-epi) text: >=90 mL/min /1.73 m2 eGFR by CKD-E PI >90 >=90 mL/mi n/1.7 3 m2 03/17 /2022 5:09 AM CDT [facility] Not Available Not Available 08/28/2024 18:35:45 09/17/19 22 09/16/2021 Basic metab olic 2000 panel - Serum or Plasm a interpretati on and review of laboratory results Abnorm al Not Available Not Available 18:35:45 09/17/19 22 09/16/2021 CBC panel - Blood by Autom ated count leukocytes [#/volume] in blood by automated count 4.8 text: 3.5 - 10.5 10 3/uL WBC 4.8 3.5 - 10.5 10 3/uL 09/16 4:58 AM CDT [facility] Not Available Not Available 08/28/2024 18:35:45 09/17/19 22 09/16/2021 CBC panel - Blood by Autom ated count erythrocytes [#/volume] in blood by automated count 5.21 text: 3.80 - 5.20 10 6/uL high RBC 5.21 (H) 3.80 - 5.20 10 6/uL 09/16 4:58 AM T [facility] Not Available Not Available 08/28/2024 18:35:45 09/17/19 22 09/16/2021 CBC panel - Blood by Autom ated count hemoglobin [mass/volume ] in blood 14.6 g/dL low: 12g/dL high: 15.6g/ dL Hemog lobin 14.6 12.0 - 15.6 g/dL 09/16 4:58 AM [facility] Not Available Not Available 08/28/2024 18:35:45 09/17/19 22 09/16/2021 CBC panel - Blood by Autom ated count hematocrit [volume fraction] of blood by automated count 42.9 % low: 35%hig h: 45% Hemat ocrit 42.9 35.0 - 45.0 % 09/16 4:58 AM [facility] Not Available Not Available 08/28/2024 18:35:45 09/17/19 22 09/16/2021 CBC panel - Blood by Autom ated count MCV [entitic volume] by automated count 82.3 fL low: 80.7fL high: 98.3fL MCV 82.3 80.7 - 98.3 fL 09/16 4:58 AM [facility] Not Available Not Available 08/28/2024 18:35:45 09/17/19 22 09/16/2021 CBC panel - Blood by Autom ated count MCH [entitic mass] by automated count 28 pg low: 26.7pg high: 34pg MCH 28.0 26.7 - 34.0 pg 09/16 4:58 AM [facility] Not Available Not Available 08/28/2024 18:35:45 09/17/19 22 09/16/2021 CBC panel - Blood by Autom ated count MCHC [mass/volume ] by automated count 34 g/dL low: 30.8g/ dLhigh : 35.9g/ dL MCHC 34.0 30.8 - 35.9 g/dL 09/16 4:58 AM [facility] Not Available Not Available 08/28/2024 18:35:45 09/17/19 22 09/16/2021 CBC panel - Blood by Autom ated count platelets [#/volume] in blood by automated count 133 text: 150 - 400 10 3/uL low Plate let Count 133 (L) 150 - 400 10 3/uL 09/16 4:58 AM [facility] Not Available Not Available 08/28/2024 18:35:45 09/17/19 22 09/16/2021 CBC panel - Blood by Autom ated count erythrocyte distribution width [entitic volume] by automated count 45.1 fL low: 36fLhi gh: 50fL RDW-S D 45.1 36.0 - 50.0 fL 09/16 4:58 AM [facility] Not Available Not Available 08/28/2024 18:35:45 09/17/19 22 09/16/2021 CBC panel - Blood by Autom ated count erythrocyte distribution width [ratio] by automated count 15.4 % low: 11.2%h igh: 14.8% high RDW-C V 15.4 (H) 11.2 - 14.8 % 03/17 /2022 4:58 AM CDT [facility] Not Available Not Available 08/28/2024 18:35:45 09/17/19 22 09/16/2021 CBC panel - Blood by Autom ated count platelet mean volume [entitic volume] in blood by automated count 10.9 fL low: 9.4fLh igh: 12.9fL MPV 10.9 9.4 - 12.9 fL 09/16 4:58 AM CDT [facility] Not Available Not Available 08/28/2024 18:35:45 09/17/19 22 09/16/2021 CBC panel - Blood by Autom ated count nucleated erythrocytes [#/volume] in blood by automated count 0 text: 0 10 3/uL nRBC Absol [place] 0.00 0 10 3/uL 09/16 4:58 AM CDT [facility] Not Available Not Available 08/28/2024 18:35:45 09/17/19 22 09/16/2021 CBC panel - Blood by Autom ated count nucleated erythrocytes /100 leukocytes [ratio] in blood by automated count 0 text: 0 /100 WBC nRBC Auto 0.0 0 /100 WBC 09/16 4:58 AM CDT [facility] Not Available Not Available 08/28/2024 18:35:45 09/17/19 22 09/16/2021 CBC panel - Blood by Autom ated count interpretati on and review of laboratory results Abnorm al Not Available Not Available 18:35:45 09/02/19 23 09/07/2022 TOXAS SURE SELEC T 13 (MW) summary report (summary) FINAL ===== ===== ===== ===== ===== ===== ===== ===== ===== ===== ===== ===== ===== === TOXAS SURE SELEC T 13 (MW) ===== ===== ===== ===== ===== ===== ===== ===== ===== ===== ===== ===== ===== === Test Resul t Flag Units Drug Prese nt Benzo ylecg onine 4752 ng/mg creat Benzo ylecg onine is a metab olite of cocai ne; its prese nce indic ates use of this drug. Sourc e is most commo nly illic it, but cocai ne is prese nt in some topic al anest hetic solut ions. ===== ===== ===== ===== ===== ===== ===== ===== ===== ===== ===== ===== ===== === Test Resul t Flag Units Ref Range Creat inine 42 mg/dL >=20 ===== ===== ===== ===== ===== ===== ===== ===== ===== ===== ===== ===== ===== === Decla red Medic ation s: Medic ation list was not provi ded. ===== ===== ===== ===== ===== ===== ===== ===== ===== ===== ===== ===== ===== === For clini niels consu ltati on, pleas e call [phone]. ===== ===== ===== ===== ===== ===== ===== ===== ===== ===== ===== ===== ===== === Not Available [facility] ([facility]) [address] [facility] [address], [place], [address], 09/07/2022 10:14:03 09/02/19 23 09/07/2022 TOXAS SURE SELEC T 13 (MW) pdf . Not Available [facility] ([facility]) [address], [place], [address], 09/07/2022 10:14:03 09/02/19 23 09/08/2022 HYDRO CODON E + METAB OLITE S, U hydrocodone Negati ve NG/mL Not Available [facility] ([facility]) [address] [facility] [address], [place], [address], 09/08/2022 17:09:40 09/02/19 23 09/08/2022 HYDRO CODON E + METAB OLITE S, U hydromorphon e Negati ve NG/mL This test was devel francaed and its perfo rmanc e evelina cteri stics deter mined by [facility]. It has not been clear ed or appro blanka by the Food and Drug Admin istra tion. Not Available [facility] ([facility]) [address], [place], [address], 09/08/2022 17:09:40 07/05/19 22 07/05/2021 XR, chest No observ ation record ed. [facility] ([facility]) [address] [place], [address], 07/05/2021 08:44:45 Result Notes None recorded. Problems Name Problem SNOMED Code Status Onset Date Resolution Date Notes Provider Name and Address Organization Details Recorded Time Allergic rhinitis 62769458 Active Jenni Martinez PA-C Attn: Accounting ,[address] [facility], [place], [address] , [place] [facility] 5 13:17:06 Essential hypertens ion 63600738 Active Jenni Martinez PA-C Attn: Accounting ,[address] [facility], [place], [address] , [place] [facility] 5 13:17:06 Depressiv e disorder 11056700 Active 2016 Jenni Martinez PA-C Attn: Accounting ,[address] [facility], [place], [address] , [facility] 7 14:58:54 Tobacco dependenc e syndrome 23484489 Active 2016 Jenni Martinez PA-C Attn: Accounting ,[address] [facility], [place], [address] , [facility] 7 15:16:32 Body mass index 25-29 - overweigh t 417215673 Active 2016 Jenni Martinez PA-C Attn: Accounting ,[address] [facility], [place], [address] , [facility] 7 16:03:23 Glaucoma 73923025 Active 2020 ANITA ROJAS Attn: Accounting ,[address] [facility], [place], [address] , [facility] 1 15:43:02 Atrial fibrillat ion 96653682 Active 2021 Dx 07/2021 ANITA ROJAS Attn: Accounting ,[address] [facility], [place], [address] , [facility] 2 11:27:18 Left ventricul ar hypertrop hy 72053839 Active 2021 ANITA ROJAS Attn: Accounting ,[address] [facility], [place], [address] , [facility] - [facility] 2 11:27:30 Long-term current use of opiate analgesic drug 847122702637 108 Active 2022 Stopped due to + cocaine in UDS ANITA ROJAS Attn: Accounting ,[address] [facility], [place], [address] , [facility] 3 14:29:02 Problem Notes None recorded. Procedures Surgical History Date Name Laterality Status Provider Name and Address Organization Details Recorded Time 01/03/20 17 Date of Last Pap Smear completed Supriya Nagy [place] 01/21/2021 14:03:58 07/03/18 78 Total hysterectomy completed Jenni Martinez PA-C Attn: Accounting,[address] [facility], [place], [address], [place] [facility] 12/15/2016 15:15:30 Imaging Results None recorded. Procedure Notes None recorded. Medical Equipment None Reported. Allergies No known drug allergies Medications Name Sig Start Date Stop Date Status Note LastModified by Organization Details LastModified Time losartan 50 mg tablet TAKE ONE TABLET BY MOUTH EVERY DAY FOR BLOOD PRESSURE 09/01 completed Not Available Not Available Not Available amoxicillin 500 mg capsule 12/15 completed Not Available Not Available Not Available latanoprost 0.005 % eye drops PLACE ONE DROP into BOTH eyes EVERY NIGHT AT BEDTIME active Not Available Not Available No t Available atorvastati n 80 mg tablet TAKE ONE TABLET BY MOUTH EVERY NIGHT AT BEDTIME TO LOWER CHOLESTER OL active Not Available Not Available No t Available carvedilol 25 mg tablet TAKE ONE TABLET BY MOUTH TWICE DAILY BEFORE MEALS FOR BLOOD PRESSURE & HEART active Not Available Not Available No t Available prednisone 10 mg tablet 04/14 completed Not Available Not Available Not Available diltiazem CD 180 mg capsule,ext ended release 24 hr Take 1 capsule every day by oral route as directed for 30 days. 04/14 completed Not Available Not Available Not Available fluconazole 150 mg tablet Take 1 tablet every day by oral route as directed for 1 day. 04/14 completed Not Available Not Available Not Available hydrocodone 5 mg-acetamin ophen 325 mg tablet TAKE ONE TABLET BY MOUTH EVERY TWELVE HOURS NEEDED 05/11 completed Not Available Not Available Not Available amlodipine 5 mg tablet TAKE ONE TABLET BY MOUTH EVERY MORNING FOR BLOOD PRESSURE active Not Available Not Available No t Available meloxicam 7.5 mg tablet Take 1 tablet every day by oral route as needed for 30 days. 04/14 completed Not Available Not Available Not Available magnesium oxide 400 mg (241.3 mg magnesium) tablet Take 1 tablet every day by oral route as directed for 30 days. 04/14 completed Not Available Not Available Not Available lisinopril 10 mg tablet Take 1 tablet every day by oral route. 01/21 completed Not Available Not Available Not Available losartan 25 mg tablet TAKE ONE TABLET BY MOUTH EVERY DAY FOR BLOOD PRESSURE active Not Available Not Available No t Available gabapentin 300 mg capsule TAKE ONE CAPSULE BY MOUTH THREE TIMES DAILY NEEDED FOR PAIN MANAGEMEN T active Not Available Not Available No t Available furosemide 20 mg tablet TAKE ONE TABLET BY MOUTH EVERY MORNING FOR FLUID RETENTION active Not Available Not Available No t Available mirtazapine 15 mg tablet TAKE ONE TABLET BY MOUTH EVERY NIGHT AT BEDTIME FOR SLEEP active Not Available Not Available No t Available gabapentin 100 mg capsule 04/14 completed Not Available Not Available Not Available fluticasone propionate 50 mcg/actuati on nasal spray,suspe nsion SPRAY ONE PUFF IN EACH NOSTRIL EVERY DAY FOR ALLERGIES active Not Available Not Available No t Available loratadine 10 mg tablet TAKE ONE TABLET BY MOUTH EVERY DAY NEEDED FOR ALLERGIES active Not Available Not Available No t Available oxycodone 5 mg tablet 04/14 completed Not Available Not Available Not Available cyclobenzap rine 5 mg tablet Take 1 tablet every day by oral route at bedtime for 30 days. 04/14 completed Not Available Not Available Not Available Tylenol 8 Hour 650 mg tablet,exte nded release Take 1 tablet every 8 hours by oral route as needed for 14 days. 09/01 completed Not Available Not Available Not Available Eliquis 5 mg tablet TAKE ONE TABLET BY MOUTH TWICE DAILY TO PREVENT BLOOD CLOTS active Not Available Not Available No t Available Vitals Date Recorded Body height Body mass index (BMI) Body weight Heart rate Body temperature Oxygen saturation Oxygen saturation in Arterial blood by Pulse oximetry Systolic And Diastolic Provider Name and Address Organization Details Last Updated DateTime 3 162.56 cm 27.1 kg/m2 53009.5 9 g 72 /min 98.8 [degF] 99 % 99 % 104/68 mm[Hg] Supriya Nagy [place] - [facility] 3 14:26:11 Date Recorded Body height Body mass index (BMI) Body weight Heart rate Oxygen saturation Oxygen saturation in Arterial blood by Pulse oximetry Systolic And Diastolic Provider Name and Address Organization Details Last Updated DateTime 2 162.56 cm 26.6 kg/m2 38595.8 2 g 72 /min 99 % 99 % 118/68 mm[Hg] Sapna Wilkinson [place] - [facility] 2 14:08:41 Date Recorded Body height Body mass index (BMI) Body weight Body temperature Oxygen saturation Oxygen saturation in Arterial blood by Pulse oximetry Heart rate Systolic And Diastolic Provider Name and Address Organization Details Last Updated DateTime 3 162.56 cm 25 kg/m2 90418.7 7 g 97.6 [degF] 99 % 99 % 64 /min 112/62 mm[Hg] Kaylee Pardo MA [facility] 3 14:08:58 Date Recorded Body height Body mass index (BMI) Body weight Heart rate Body temperature Oxygen saturation Oxygen saturation in Arterial blood by Pulse oximetry Systolic And Diastolic Provider Name and Address Organization Details Last Updated DateTime 2 162.56 cm 27.4 kg/m2 57534.9 9 g 60 /min 98.3 [degF] 99 % 99 % 104/62 mm[Hg] Supriya Nagy [place] - [facility] 2 12:59:20 Social History Question Answer Notes LastModified by Organizat ion Details LastModified Time Tobacco Smoking Status Former Smoker aSpna Wilkinson MA [email or web address], [place] - [place] 04/14/2022 14:06:45 Do You Have An Advance Directive? No [email or web address] Information not available 04/21/2015 What Is Your Level Of Caffeine Consumption? Occasional [email or web address] Information not available 04/21/2015 How Much Tobacco Do You Chew? None [email or web address] Information not available 04/21/2015 In The 14 Days Before Symptom Onset, Have You Had Close Contact With A Laboratory-confir med COVID-19 While That Case Was Ill? No Information not available 01/21/2021 In The 14 Days Before Symptom Onset, Have You Had Close Contact With A Person Who Is Under Investigation For COVID-19 While That Person Was Ill? No Information not available 01/21/2021 Have You Been To An Area Known To Be High Risk For COVID-19? No Information not available 01/21/2021 What Type Of Diet Are You Following? REGULAR [email or web address] Information not available 04/21/2015 Which Illicit Or Recreational Drugs Have You Used? 0 [email or web address] Information not available 04/21/2015 Are There Any Guns Present In Your Home? No [email or web address] Information not available 04/21/2015 Hard Of Hearing Or Deaf In One Or Both Ears? No [email or web address] Information not available 04/21/2015 Legally Blind In One Or Both Eyes? No [email or web address] Information no t available 04/21/2015 Live Alone Or With Others? With Others [email or web address] Information not available 04/21/2015 Do You Have A High School Diploma Or Higher Education? Yes Information not available 01/21/2021 Do You Sometimes Have To Miss Your Medical Appointments Due To Difficult Getting Transportation? No Information not available 01/21/2021 Do You Feel Unfairly Treated Due To Things Such As Race, Age, Gender, Disability Or Some Other Reason? No Information not available 01/21/2021 Do You Feel Physically And Emotionally Safe While Living At Home? Yes Information not available 01/21/2021 Do You Feel Physically And Emotionally Safe In Your Neighborhood Or Other Public Places? Yes Information not available 01/21/2021 What Was The Date Of Your Most Recent Tobacco Screening? 05/11/2023 Information not available 05/11/2023 How Many Children Do You Have? 1 Information not available 04/21/2015 What Is Your Relationship Status? Information not available 01/21/2021 Seat Belts Used Routinely Yes [email or web address] Information not available 04/21/2015 Are You Sexually Active? No [email or web address] Information not available 04/21/2015 Smoke Alarm In Home Yes Information not available 04/21/2015 Do You Have Smoke And Carbon Monoxide Detectors In Your Home? Yes Information not available 01/21/2021 At What Age Did You Start Smoking Tobacco? 27 [email or web address] Information not available 04/21/2015 Are You Passively Exposed To Smoke? No [email or web address] Information no t available 04/21/2015 How Much Tobacco Do You Smoke? No Information not available 05/11/2023 General Stress Level Low [email or web address] Information not available 04/21/2015 How Many Years Have You Smoked Tobacco? 32 Information not available 04/21/2015 Sex: Female Functional Status Question Answer Note LastModified by Organizat ion Details LastModified Time Do you use any illicit or recreational drugs? No Information not available 01/21/2021 What is your level of alcohol consumption? Moderate Information not available 01/21/2021 Are you currently employed? Yes Information not available 01/21/2021 Are you able to care for yourself independently? Yes [email or web address] Information not available 04/21/2015 What is your exercise level? None [email or web address] Information not available 04/21/2015 Mental Status None recorded. Family History Relationship Description Onset Age of this Age Resolved Age Notes LastModified by Organization Details LastModified Time Father [email or web address] Not available 13:07:48 Father Malignant neoplasm of pharynx [email or web address] Not available 2014 13:07:48 Mother eewig Not available 13:07:48 Brother Diabetes mellitus [email or web address] Not available 2014 13:07:48 Sister Disorder of thyroid gland [email or web address] Not available 2014 13:07:48 Medical History Condition Response Coronary Artery Disease N Atrial Fibrillation N High Blood Pressure Y Depression Y COPD N Blood Clots N Anxiety Disorder Y Muscle, Joint, or Bone Problems Y Acid Reflux (GERD) Y Cancer N Stroke N High Cholesterol N Liver Disease N Headaches N Kidney or Bladder Problems N Thyroid Problems N GI Problems N Skin Problems N Anemia N Heart Attack (NM) N Diabetes N Seizures/Epilepsy N Asthma N Allergies Y Hepatitis N Heart Failure N Osteoporosis N Gynecological History Statement/Question Response Menses Monthly N Date of Last Pap Smear 01/02/2017 Current Control Method Hysterectom y Age at First Child 22 Obstetrics History GPAL:G 1 P 1 0 0 1 Type Value Full Term 1 Living 1 Total 1 Immunizations Vaccine Type Date Status Note Provider Nam e and Address Organization Details Recorded Time COVID-19 vaccine, vector-nr, rS-Ad26, PF, 0.5 mL [address] [facility], [place] [facility] 01/01/2021 13:24:43 COVID-19, mRNA, LNP-S, PF, 100 mcg/0.5mL dose or 50 mcg/0.25mL dose 1 completed ANITA ROJAS Attn: Accounting,[address] [facility], [place], [address], [place] [facility] 04/14/2022 15:00:28 Influenza, split virus, quadrivalent, preservative 2 completed ANITA ROJAS Attn: Accounting,[address] [facility], [place], [address], [place] [facility] 04/18/2022 18:18:41 Pneumococcal conjugate PCV20, polysaccharide EPJ020 conjugate, adjuvant, PF 2 completed ANITA ROJAS Attn: Accounting,[address] [facility], [place], [address], [place] [facility] 04/18/2022 18:18:41 Influenza, high-dose, quadrivalent, PF 3 completed ANITA ROJAS Attn: Accounting,[address] [facility], [place], [address], [place] [facility] 05/11/2023 16:30:40 Influenza, split virus, quadrivalent, preservative 5 completed Not Available [facility] 07/20/2019 02:32:10 Past Encounters Encounter ID Performer Location Encounter Start Date Encounter Closed Date Diagnosis/Indication Diagnosis SNOMED-CT Code Diagnosis ICD10 Code Diagnosis IMO Codes Diagnosis Note [id number] Alejandro Mishra MD [facility] (Adult Med) [address] [place] [id number] 04/21/2015 12:28:21 04/21/2015 13:17:34 Active or passive immunization 642341982 Z23 Allergic rhinitis 351627 04 J30.9 Essential hypertension 22613244 I10 Screening for malignant neoplasm of colon 301465726 Z12.11 Screening for malignant neoplasm of breast 114975280 Z12.39 Adult [facility] th examination 010710262 Z00.00 [id number] Christy Nagy MD [facility] (Adult Med) [address] [place] [id number] 12/15/2016 14:31:14 12/16/2016 10:28:43 Allergic rhinitis 37880841 J30.9 advised to avoid allergens; started on flonase and loratadine Essential hypertension 87237290 I10 140/80 - will restart lisinopril 10mg Body mass index 25-29 - overweight 670760638 Z68.29 Advised 30 minutes of exercise 5 days/week Advised to not drink her calories Advised 3 balanced meals/day with plenty of fruits and vegetables Depressive disorder 9149 3587 F32.9 Advised she can call clinic and set up appointmen t with counselor or psychiatry Screening for malignant neoplasm of colon 681706850 Z12.11 provided referral to set up colonoscop y Tobacco de pendence syndrome 65814586 F17.290 Smoking one cigarette/ day - advised to quit Adult heal th examination 575651112 Z00.01 61YO female presents for yearly physical she never had labs completed after last visit. Did not do any of the referrals that were given. Screening for disorder 300732960 Z13.9 Screening for malignant neoplasm of breast 026338667 Z12.39 provided referral to set up mammogram [id number] ANITA ROJAS (Adult Med) [address] [place] [address] 01/21/2021 13:41:19 01/22/2021 21:04:56 Adult health examination 756006401 Z00.00 Patient presents for annual health examalexander torres. Was last seen in 2017.-Will check all routine labs today including thyroid. Patient has exophthalm os on PE. Has a history of glaucoma. Will rule out thyroid disease as well. Allergic rhinitis 513794 04 J30.9 Patient presents complainin g of nasal congestion , ear pain and an itchy throat. States that she has been diagnosed and treated for allergies in the past.-Flon ase and claritin were helpful in the past. Will represcrib e today. Low back pain 629603970 M54.5 Patient presents with 2 weeks of low back pain. Patient is tender over lumbar spine on physical exam and over the muscles in the lumbar region. Denies any trauma or injury to the area. Admitted to slight relief with a muscle relaxer, unsure of name. -Will order xray of lumbar spine-Will prescribe light dose of muscle relaxer and prescribe meloxicam to help with inflammati on-Encoura ged patient to stretch and use heat to help soothe her muscles. Provided her with back pain care instructio ns and exercises. Pain of bi lateral hip joints 7870335103 4755817 M25.551 Patient presents with worsening bilateral hip pain x 6 months. Admits to radiation of back pain in lateral and anterior hips. -Will order xray of bilateral hips to assess for any arthritic changes-En couraged patient to stretch and use heat to help soothe her muscles. Provided her with hip pain care instructio ns and exercises. Glaucoma 10498132 H40.9 Patient with a history of glaucoma, being managed by [facility]. Screening for malignant neoplasm of breast 263814926 Z12.39 Last mammogram done in 2016, stable. Denies a personal or family history of breast cancer. - Will place order for mammogram today, call to schedule Screening for malignant neoplasm of colon 478015379 Z12.11 Patient requesting cologuard today. Has never had a colonoscop y done. Denies a personal or family history of colon cancer. - Cologuard ordered today. Provided patient with informatio n on the test. [id number] ANITA ROJAS (Adult Med) [address] [place] [id number] 08/04/2021 08:45:20 08/24/2021 03:46:23 [id number] ANITA ROJAS (Adult Med) [address] [place] [phone] 04/14/2022 13:55:27 05/03/2022 10:06:59 Cerebrovascular accident 927518948 I63.[address] [facility] ER 09/14 with concern for stroke. CTH showed no acute intracrani al hemorrhage and she was given TPA. She was started on nicardipin e ggt due to elevated DBP and CTA showed occlusion in the distal left M2 branch.She stayed at [facility] x 6 months, discharged home last week. Needs refills on everything . She has slurred speech, R arm>leg paresis but notes all has improved with help of fdc. She is happy to be home finally and plans to continue to work to build her strength.- mirtazapin e refilled to help with sleep at night Atrial fibrillation 4943 6004 I48.91 Patient was unaware of afib diagnosis, she remembered being told about it but unsure what it meant and really why [facility] a [facility] troponin with peak at 1.8 with wall motion abnormalit y on ECHO. Cardiology was consulted but deemed it demand ischemia from stroke and recommende d additional outpatient workup. She was restarted on home eliquis for secondary stroke prevention . She was started on a beta leonor and increased home losartan for blood pressure control. She was discharged in a stable condition to a rehab facility. Outpatient cardiac CT was ordered prior to discharge for cardiology follow up.- discussed dx of afib, importance of taking blood thinner, and how it likely caused her stroke- restart medication s to control afib- never saw cardiology once discharged since she went to SNF, will place referral now Essential hypertension 69873861 I10 BP 118/68 todayNeedi ng refills on her medication s- will refill- keep BP under control- cardiology referral placed today Active or passive immunization 872399748 Z23 PNA vaccine given to patient today due to patient's age and recent hx of CVA Administra tion of influenza vaccine 83138054 Z23 Flu vaccine completed today Neuropathy 987578780 G62 .9 Admits to severe shooting pain in her R arm since the CVA, discharged home with oxycodone and gabapentin 100 mg tablets from SNF- increase gabapentin to 300 mg PRN- unable to prescribed oxy, will decrease down to hydrocodon es and discussed possible need for chronic opioid treatment for her pain. 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 paresis present after recent CVA, R arm worse than R legWas at SNF x 6 months and admits to great improvemen ts since discharge from the hospital Allergic rhinitis 455363 04 J30.9 Requesting refills on her allergy medication s, doing well with no complaints [id number] ANITA ROJAS (Adult Med) [address] [place] [id number] 05/23/2022 12:23:27 05/24/2022 14:09:34 History of cerebrovascular accident 574285130 Z86.73 R sided paresis present after recent CVA, R arm worse than R legWas at SNF x 6 months and admits to great improvemen ts since discharge from the hospital- discussed restarting PT to keep working on regaining her strength, may need to be outpatient if unable to get at home PT- paperwork completed for her to allow her to have ground level apartment- patient requesting help at home including Door Assembler to help with some ADLs and IADLS Essential hypertension 23809257 I10 BP 104/62 todayDoing well on medication s, slightly concerned for too low of blood pressure but will continue to monitor- keep BP under control- cardiology referral placed last visit Neuropathy 683065945 G62 .9 Admits to severe shooting pain in her R arm since the CVA, discharged home with oxycodone and gabapentin 100 mg tablets from SNF- pain medication s switched from oxy to hydrocodon e at last visit, taking BID as needed- Continue gabapentin to 300 mg PRN Tenosynovi tis of left radial styloid 0160304125 4228849 M65.4 Left wrist pain x2 month, worse with wrist extension and thumb abduction. Patient reported using left hand only due to right sided paresis. On exam, left radial styloid tenderness , positive Finkelstei n, normal ROM. Likely de Quervain tenosynovi tis due to over use.- Thumb spica wrist splint at home, does not need to wear 24 hours- Unable to take NSAIDs due to comorbidit ies, start Tylenol 650mg Q8 PRN for pain. Advised patient that Garrison contains Tylenol and that max dosing is 4000mg daily.- Recommend applying ice at home at least BID for 15 minutes- Informatio n given for at home exercises Overweight 628525854 E66 .3 Advised decreased portion sizes, good food choices, limited eating out or fast food and eliminate soda and juice from diet. Advised physical activity daily and offered encouragem ent to continue with positive changes made so far. [id number] ANITA ROJAS (Adult Med) [address] [place] [id number] 09/01/2022 13:57:08 09/06/2022 10:22:15 History of cerebrovascular accident 272141774 Z86.73 R sided paresis present after recent CVA, R arm worse than R legWas at SNF x 6 months and admits to great improvemen ts since discharge from the hospital- discussed restarting PT to keep working on regaining her strength- patient requesting help at home including Door Assembler to help with some ADLs and IADLS Essential hypertension 22755839 I10 BP 104/68Doin g well on medication , BP low again today- keep BP under control- lower losartan from 50 mg to 25 mg daily- c/w other medication s Neuropathy 484786606 G62 .9 Admits to severe shooting pain in her R arm since the CVA, discharged home with oxycodone and gabapentin . Pain medication s switched from oxy to hydrocodon e at last visit, taking BID as needed. Ran out 1 month ago and not refilled since she did not complete UDS.- discussed that I did not stop pain medication , was waiting for UDS results. Will complete today. Provided short course of pain medication until results are back.- Continue gabapentin to 300 mg PRN Overweight 940606626 E66 .3 Advised decreased portion sizes, good food choices, limited eating out or fast food and eliminate soda and juice from diet. Advised physical activity daily and offered encouragem ent to continue with positive changes made so far. Pain of ri ght shoulder joint 6868614964 6951729 M25.511 Hx of R frozen shoulder, completed PT, injections and steroids in the past but has been without since discharge from [facility]dc- restart PT- may need to refer back to ortho if PT is not enough by itself- work on home exercises, want to keep the joint moving Plantar fasciitis 20280202 003 M72.2 Complainin g of new heel pain bilaterall y, L>RMostly at night but admits to heels feeling tight when walkingWea rs unsupporte d flat Ked shoes only- discussed possible diagnosis of PF- start with exercises and supportive care- work on purchasing more supportive shoes Atrial fibrillation 4943 6004 I48.91 Hx of Afib and CVAShe was restarted on home eliquis for secondary stroke prevention . She was started on a beta leonor and increased home losartan for blood pressure control.- discussed dx of afib, importance of taking blood thinner, and how it likely caused her stroke- c/w medication s to control afib- cardiology referral placed 04/2022 Allergic rhinitis 394489 04 J30.9 Requesting refills on her allergy medication s, doing well with no complaints Depression screening 171 081282 Z13.31 PHQ 2/9 was negative in office today (0 out of 27) [id number] ANITA ROJAS (Adult Med) [address] [place] [id number] 05/11/2023 13:23:37 05/15/2023 15:15:34 Essential hypertension 01113008 I10 BP 112/62Doin g well on medication , BP low again today - c/w medication s, consider coming off amlodipine in the future History of cerebrovascular accident 681274837 Z86.73 R sided paresis present after recent CVA, R arm worse than R legWas at SNF x 6 months and admits to great improvemen ts since discharge from the hospital- discussed restarting PT to keep working on regaining her strength- patient requesting help at home including Door Assembler to help with some ADLs and IADLS- Re-order walker as her previous walker had broken Neuropathy 616824041 G62 .9 Admits to severe shooting pain in her R arm since the CVA, discharged home with oxycodone and gabapentin . previously taking hydrocodon e as needed for pain. She reports shooting pain, numbness, and tingling has since resolved. Has not needed hydrocodon e in months. She takes gabapentin and tylenol for pain and reports it is well controlled .- No indication for pain medication at this time as it is well controlled with gabapentin and tylenol- Continue gabapentin to 300 mg PRN Pain of ri ght shoulder joint 8832406893 0660257 M25.511 Hx of R frozen shoulder, completed PT, injections and steroids in the past but has been without since discharge from [facility]dc. Still having limited ROM of R shoulder. Pain is well controlled with gabapentin and tylenol- restart PT- may need to refer back to ortho if PT is not enough by itself- work on home exercises, want to keep the joint moving Atrial fibrillation 4943 6004 I48.91 Hx of Afib and CVA.She was restarted on home eliquis for secondary stroke prevention . She was started on a beta leonor and increased home losartan for blood pressure control.- discussed dx of afib, importance of taking blood thinner, and how it likely caused her stroke- c/w medication s to control afib- cardiology referral placed Allergic rhinitis 533522 04 J30.9 Requesting refills on her allergy medication s, doing well with no complaints Overweight 723839525 E66 .3 Advised decreased portion sizes, good food choices, limited eating out or fast food and eliminate soda and juice from diet. Advised physical activity daily and offered encouragem ent to continue with positive changes made so far. Administra tion of influenza vaccine 01599146 Z23 Flu vaccine completed today Postmenopausal state 764 60794 Z78.0 Due for DEXA screening Screening mammography 24 845326 Z12.31 Last mammogram was in 2016.- Order mammogram Screening for malignant neoplasm of colon 781169957 Z12.11 Has never had a colonoscop y done. - Referral given to GI to complete colonoscop y. Active or passive immunization 522772291 Z23 Ordered shingles vaccine today, go to pharmacy to complete 2 step series Health Concerns Section Related Observation LastModified by Organization Detai ls LastModified Time None Recorded Concern Status LastModified by Organization Details LastModified Time None Recorded Advance Directives Directive N: Payers Insurance Date Sequence Insurance Name Policy Number Policy Barrett Covered Member ID Barrett Member ID Guarantor Name 05/30/2023 1 UNSPECIFIED REMIT PAYOR Gila Lui 05/11/2023 2 [facility] ON OR AFTER 12/31/20 (MEDICAID REPLACEMENT - HMO) Gila Lui [id number] Gila Lui 05/11/2023 2 [place] [facility] OF PUBLIC AID Gila Lui [id number] Gila Lui 05/11/2023 1 [facility] PRIOR TO 12/31/2020 (MEDICAID REPLACEMENT - HMO) Gila Lui [id number] Gila Lui 05/11/2023 1 [facility] PRIOR TO 12/31/2020 (MEDICAID REPLACEMENT - HMO) Gila Lui [id number] Gila Lui 01/08/2024 1 [facility] ON OR AFTER 07/03/2020 - DUAL ELIGIBLE (MEDICARE REPLACEMENT/AD VANTAGE - HMO) [id number] Gila Lui [id number] Gila Lui 05/15/2023 1 [place] WHEN MEDICARE OR MEDICARE REPLACEMENT PRIMARY) Gila Lui [id number] Gila Lui 01/08/2024 [place] [facility] Gila Lui [id number] Gila Lui 05/15/2023 2 [facility] ON OR AFTER 2020 - DUAL ELIGIBLE (MEDICARE REPLACEMENT/AD VANTAGE - HMO) [id number] Gila Lui [id number] Gila Lui 05/15/2023 1 [place] Gila Lui [id number] Gila Lui Notes Date Note Type Note Provider Name and Address Organization Details Recorded Time 04/14/2022 text/html ROS as noted in the HPI 66 year old female with history of afib (non-compliant for a short time because she ran out of medication) and HTN presents today for hospital f/u due to CVA. She went to bed feeling normal and then woke up on 09/14 with right sided weakness and slurred speech. She went to [facility] ER with concern for stroke. CTH showed no acute intracranial hemorrhage and she was given TPA. She was started on nicardipine ggt due to elevated DBP and CTA showed occlusion in the distal left M2 branch. MT not pursed due to distal occlusion. She was admitted to the neuro ICU for further monitoring. Nicardipine was titrated off. During hospital course had elevated troponin with peak at 1.8 with wall motion abnormality on ECHO. Cardiology was consulted but deemed it demand ischemia from stroke and recommended additional outpatient workup. She was restarted on home eliquis for secondary stroke prevention. She was started on a beta leonor and increased home losartan for blood pressure control. She was discharged in a stable condition to a rehab facility. Outpatient cardiac CT was ordered prior to discharge for cardiology follow up. She stayed at [facility] custodial x 6 months, discharged home last week. Needs refills on everything. She has slurred speech, R arm>leg paresis but notes all has improved with help of fdc. She is happy to be home finally and plans to continue to work to build her strength. Also requesting flu and PNA vaccines. Needs paperwork completed so she can ride the bus. Denies fever, chills, nausea, vomiting, headaches, chest pain, SOB, abdominal pain, diarrhea, constipation, or dysuria. ANITA ROJAS Attn: Accounting,[address] [facility], [place], [address], [facility] 04/18/2022 18:37:13 05/23/2022 text/html ROS as noted in the HPI Gila Lui is a 66 year old female with a history of CVA with residual right sided paresis, atrial fibrillation, LVH, HTN presenting with left wrist pain and paperwork for transportation. Patient reported left wrist pain x2 months. The pain was intermittent at onset, but has become constant in last 2 weeks. Pain mostly at lateral wrist and with wrist extension. Patient reported that she has been using her left hand only for her activities of daily living due to right sided paresis from CVA. Her Garrison has not helped with the pain. She denied injury to the wrist/hand. She denied numbness/tingling in fingers. Patient requesting paperwork to be filled out for her transportation. She also stated that she would like a home health aide to help around the house, activities of daily living are becoming increasingly difficulty. She does not have family or friends who help her at home. ANITA ROJAS Attn: Accounting,[address] [place], [address], [facility] 05/23/2022 16:15:02 09/01/2022 text/html ROS as noted in the HPI Gila Lui is a 66 year old female with a history of CVA with residual right sided paresis, atrial fibrillation, LVH, HTN presenting today for f/u, medication refill and question about pain medication. Ran out of pain medication 1 month ago and states well since you stopped my pain medication completely. Notes her right frozen shoulder and neuropathy pain has been severe without it and can not sleep because of it, ibuprofen not working. Was unable to start home health or PT since last visit, prior referral did not take her insurance. Denies fever, chills, nausea, vomiting, headaches, chest pain, SOB, abdominal pain, diarrhea, constipation, or dysuria. ANITA ROJAS Attn: Accounting,[address] [place], [address], [facility] 09/01/2022 21:55:50 05/11/2023 text/html ROS as noted in the HPI Gila is a 67 yo female with pmhx of HTN, glaucoma, hx of CVA, and LVH who presents for follow-up. She has been doing well since she was last seen in clinic on 08/2022. She has been keeping active with going to senior citizen groups, going to movies, and riding the bus. She states she needs a new walker. Reports her walker fell apart in December. She has been borrowing a walker for the time being. She uses walker when she is out in public for stability. She has recently moved into a senior apartment. She is requesting home care, as she is unable to cook, do dishes, make bed, laundry, etc. She reports occasional difficultly performing ADLs such as dressing and hygeine. She states her frozen shoulder has been doing alright. She has been taking tylenol and gabapentin for pain. Still reports minimal ROM with right shoulder. She states neuropathy has fully resolved. Reports medication compliance. Denies recent falls. Denies fever, chills, nausea, vomiting, headaches, chest pain, SOB, abdominal pain, diarrhea, constipation, hematuria, blood in stool, bruising easily, or dysuria. ANITA ROJAS Attn: Accounting,[address] [facility], [place], [address], [facility] 05/11/2023 16:33:38 OBGyn Episode Ob Episode Information Episode Created Date Number of Fetuses Patient Bloodtype Patient rh Status Prepregnancy Weight lbs Domestic Partner Domestic Partner Phone Father Name Copy Technician Status 01/22/20 21 1 CLOSED Fetus Data First Name Last Name Admitted to NICU Weight (g) Sex Living Outcome Pediatric Complications Fetus ID Race Codes Race Delivery Type M Full Term [id number] Erick Calculation Initial Erick Date Initial Exam Date Initial Exam Provider Initial Ultrasound Date Last Menstrual Period Date Ultra Sound Weeks Gestation 0 Eighteen To Twenty Week Erick Update Ultra Sound Date Fundal Height At Umbil Quickening Date Ultra Sound Latest Weeks Gestation Final Erick Confirmed By Final Erick Confirmed Date Final Erick Date Ultra Sound Latest Days Gestation 0 0 Menstrual History Last Menstrual Date Menses Monthly On Bcp Conception Prior Menses Frequency Hcg Plus Date Menarche Onset Age Delivery Information Delivery Date Delivery Type Labor Anesthesia Weeks Gestation Incision Type Labor Labor Length Hrs Delivered By Post Complications Tubal Sterilization Discharge Date Comments 7 Discharge Information Feeding Method Contraceptive Method Maternal HG B and HCT Levels
== END 2025-05-15 08:10 | disposition home or self-care (01) ==
LOC: ANHFOHIMG 08:12
DX: Z12.31 Encounter for screening mammogram for malignant neoplasm of breast (principal); Z78.0 Asymptomatic menopausal state; M85.852 Other specified disorders of bone density and structure, left thigh; M85.851 Other specified disorders of bone density and structure, right thigh
CPT/HCPCS: 77063; 77067; 77080